=== PATIENT | female | born 1950 | race Caucasian/White ===

== ENCOUNTER 2020-03-28 04:55 | Inpatient (IN) | payer OTHER ==
--- OUTSIDE RECORDS SUMMARY | 2020-03-28 04:57 | XMS REPORT | Continuity of Care Document ---
:1950 Author Organization [facility] t Address [address] [place] [address] Care Team Providers Name Role Phone Trip Perez MD Attending Clinician Doctor Unassigned, Name Attending Clinician Unavailable Austin Mares MD Attending Clinician Problems This patient has no known problems. Allergies, Adverse Reactions, Alerts This patient has no known allergies or adverse reactions. Medications This patient has no known medications. Procedures This patient has no known procedures. Encounters Start End Encounter Admission Attending Care Care Encounter Source Date/Time Date/Time Type Type Clinicians Facility Department ID 2020-02-12 2020-02-12 Telephone PATRICIA Perez [id number] 00:00:00 00:00:00 Trip Whitten [id number] Piotr Culver [id number] [place] [phone] [address] 2020-02-09 2020-02-09 Orders Doctor DALE [id number] 00:00:00 00:00:00 Only Unassigned, ERAN [id number] [facility] [phone] [id number] 2019-12-30 2019-12-30 [facility] [id number] 00:00:00 00:00:00 [facility] [id number] [place] [id number] Professio [phone] [place] [address] Office [facility] 2019-12-08 2019-12-08 [facility] [id number] 00:00:00 00:00:00 Trip Whitten [id number] [place] [id number] Professio [phone] [address] 2019-12-08 2019-12-08 Orders Doctor SUYAPA [id number] 00:00:00 00:00:00 Only Unassigned, ERAN [id number] [facility] [phone] [id number] 2019-11-18 2019-11-18 Orders Doctor SUYAPA [id number] 00:00:00 00:00:00 Only Unassigned, ERAN [id number] [facility] [id number] [id number] 2019-11-13 2019-11-13 [facility] [id number] 00:00:00 00:00:00 Trip Whitten [id number] [place] [id number] Professio [phone] [address] 2019-11-05 2019-11-05 [facility] [id number] 00:00:00 00:00:00 [facility] [id number] [place] [id number] Professio [phone] [address] 2019-11-04 2019-11-04 Orders Doctor SUYAPA 1.2.840.114 [id number] 00:00:00 00:00:00 Only Unassigned, ERAN [id number] [facility] [phone] [id number] 2019-11-03 2019-11-03 Telephone [facility] [id number] 00:00:00 00:00:00 [facility] [id number] Piotr Whitten [id number] Professio [phone] [address] 2019-10-30 2019-10-30 [facility]phone [facility] [id number] 00:00:00 00:00:00 Suyapa Maria Dolores [id number] [place] [id number] Professio [phone] [address] 2019-10-29 2019-10-29 Telephone Vishnu [facility] [id number] 00:00:00 00:00:00 Suyapa Maria Dolores [id number] Austin [place] [id number] Professio [phone] [address] 2019-10-27 2019-10-27 Orders Doctor DALE [id number] 00:00:00 00:00:00 Only Unassigned, ERAN [id number] [facility] [id number] [id number] 2019-10-22 2019-10-22 Orders Doctor DALE [id number] 00:00:00 00:00:00 Only Unassigned, ERAN [id number] [facility] [id number] [id number] 2019-10-12 2019-10-12 Orders Doctor SUYAPA [id number] 00:00:00 00:00:00 Only Unassigned, ERAN [id number] [facility] [phone] [id number] Results This patient has no known results.
--- OUTSIDE RECORDS SUMMARY | 2020-03-28 04:58 | XMS REPORT | Summary of Care ---
:1950 Author Organization [facility] - Health Address [address] [place] [address] Care Team Providers Name Role Phone Piotr Perez MD Primary Care Provider Encounter Details Date Type Department Care Team Description 02/09/2020 Orders Only [facility] Doctor Unassigned, No [address] [facility] [place] [address] [address] [place] [address] Allergies Active Allergy Reactions Severity Noted Date Comments Penicillin Unknown - See comments 05/23/2015 Sulfa (Sulfonamide Antibiotics) Unknown - See comments 05/23/2015 documented as of this encounter (statuses as of 03/07/2020) Medications Medication Sig Dispensed Refills Start Date End Date Status metoprolol tartrate Take 1 tablet by 60 tablet 0 10/01/2019 Active 100 mg mouth every 12 tabletIndications: (twelve) hours. Mucocele of appendix, Chronic atrial fibrillation atorvastatin 40 mg Take 1 tablet by 30 tablet 0 10/01/2019 Active tabletIndications: mouth at bedtime. Mucocele of appendix, Chronic atrial fibrillation Polyethylene Glycol Take 1 Packet by 30 Packet 0 10/01/2019 Active 3350 17 gram mouth daily. powderIndications: Mucocele of appendix, Chronic atrial fibrillation sennosides 8.6 mg Take 1 tablet by 30 tablet 0 10/01/2019 Active tabletIndications: mouth daily. Mucocele of appendix, Chronic atrial fibrillation thiamine 100 mg Take 1 tablet by 30 tablet 0 10/02/2019 Active tabletIndications: mouth daily. Mucocele of appendix, Chronic atrial fibrillation apixaban 5 mg Take 1 tablet by 60 tablet 0 10/01/2019 Active tabletIndications: mouth 2 (two) atrial fibrillation times daily. Indications: atrial fibrillation HYDROcodone-acetaminop Take 1 tablet by 20 tablet 0 10/08/2019 Active hen 5-325 mg mouth every 6 tabletIndications: (six) hours as Acute on chronic needed for Pain diastolic congestive (scale 4-6) or heart failure, Pain (scale 7-10). Mucocele of appendix PARoxetine 30 mg 0 09/20/2019 Ac tive tablet proMETHazine 25 mg 0 09/21/2019 Active tablet ELIQUIS 2.5 mg tablet 0 09/18/2019 Active furosemide 20 mg 0 09/18/2019 Ac tive tablet hydrOXYzine 10 mg 0 09/20/2019 A ctive tablet divalproex ER 250 mg 0 09/20/2019 Active 24 hr tablet HYDROcodone-acetaminop Take 1 tablet by 20 tablet 0 10/19/2019 Active hen (NORCO) 5-325 mg mouth every 6 tabletIndications: (six) hours as Mucocele of appendix needed for Pain (scale 4-6) for up to 20 doses. cyclobenzaprine 5 mg Take 1 tablet by 30 tablet 0 10/24/2019 Active tabletIndications: mouth 3 (three) Bilateral leg edema, times daily as Urinary tract needed for Muscle infection with Spasms for up to hematuria, site 30 doses. 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 Weakness 07/15/2019 Chronic atrial fibrillation 07/14/2019 Acute on chronic diastolic congestive heart failure Intractable pain 07/06/2019 Paroxysmal atrial fibrillation with RVR 07/06/2019 History of arterial ischemic stroke 07/06/2019 Vertigo 06/15/2017 Essential hypertension 11/02/2015 Psoriasis 11/02/2015 Morbid obesity 11/02/2015 Anxiety 11/02/2015 documented as of this encounter (statuses as of 03/07/2020) Immunizations Name Administration Dates Next Due Influenza High Dose 06/16/2017 Pneumococcal Polysaccharide, PPSV23 (PNEUMOVAX) 06/16/2017 documented as of this encounter Social History Tobacco Use Types Packs/Day Years Used Date Never Smoker Smokeless Tobacco: Never Used Alcohol Use Drinks/Week oz/Week Comments No Sex Assigned at Date Recorded Not on file Job Start Date Occupation Industry Not on file Not on file Not on file Travel History Travel Start Travel End No recent travel history available. documented as of this encounter Last Filed Vital Signs Not on filedocumented in this encounter Plan of Treatment Health Maintenance Due Date Last Done Comments HEPATITIS C (HCV) SCREEN 1950 DTaP,Tdap,and Td Vaccines (1 - Tdap) 10/13/1962 Breast Cancer Screening (MAMMOGRAM) 1991 COLONOSCOPY 10/13/2001 Zoster Recombinant Vaccine (SHINGRIX) (1 10/13/2001 of 2) Medicare Wellness Visit 10/13/2016 Osteoporosis Screening 10/13/2016 PNEUMOCOCCAL VACCINES 65+ (2 of 2 - PCV13) 06/16/201806/16 INFLUENZA VACCINE (#1) 2020 07/02/2019, 06/16/2017 Depression Screening 07/05/2020 07/05/2019 documented as of this encounter Implants Implanted Type Area Ring Spinner Device Identifier Shelf Exp iration Model / Serial Date / Lot Knee KNEE documented as of this encounter Procedures Procedure Name Priority Date/Time Associated Diagnosis Comme nts INSURANCE CORRESPONDENCE Routine 02/09/2020 12:01 AM CDT documented in this encounter Results Not on filedocumented in this encounter Insurance Payer Benefit Plan / Subscriber ID Effective Dates Phone Addre ss Type Group [employer] [id number] 2019-Prese Medicare Adv PLUS PLUS nt HMO CLASSIC/VALUE documented as of this encounter
[2020-03-28] MEDS ORDERED: dilTIAZem HCL 25 MG/5 ML VIAL IV ONE ×2 (05:18→05:31)
[2020-03-28 05:25] LABS: Absolute Lymphocytes (CBC) 1.6 K/uL (0.7-4.9); Basophils % 0.2 % (0-1.3); Hematocrit 31.8 % (36.0-45.0); Lymphocytes % 19.8 % (15.3-44.8); MPV 8.3 fL (7.6-11.3); RBC Red Blood Cell Count 3.48 M/uL (3.86-4.86)
[2020-03-28 05:28] LABS: Protime INR 2.47
[2020-03-28] MEDS ORDERED: NA CHLORIDE 0.9% 100 ML IV ONE (05:29)
[2020-03-28 05:58] LABS: ALT/SGPT 70 U/L (12-78); Albumin 1.5 g/dL (3.4-5.0); Alkaline Phosphatase 64 U/L (45-117); BUN Blood Urea Nitrogen 60 mg/dL (7-18); Bicarbonate 22 mmol/L (21-32); Bilirubin Total 1.3 mg/dL (0.2-1.0); CKMB Creatine Kinase MB < 1.0 ng/mL (0.3-3.6); Creatine Phosphokinase 416 U/L (26-192); Glucose Level 85 mg/dL (74-106); Lipase 37 U/L (73-393); Magnesium 1.5 mg/dL (1.8-2.4); Potassium 3.5 mmol/L (3.5-5.1); Protein, Total 6.3 g/dL (6.4-8.2); Sodium Level 151 mmol/L (136-145); Troponin (Emerg Dept Use Only) 0.55 ng/mL (0.0-0.045)
[2020-03-28 05:59] LABS: AST/SGOT 367 U/L (15-37)
[2020-03-28] MEDS ORDERED: FENTANYL CITR 100 MCG/2 ML ONE (05:59)
--- NOTE | 2020-03-28 05:59 | EDPHYS ---
Physician Documentation [facility] Name: Jasmin Hadley Age: 69 yrs Sex: Female : 1950 Arrival Date: 03/28/2020 Time: 04:56 Bed 6 Private MD: ED Physician Michael Real HPI: 03/28 05:24 This 69 yrs old Female presents to ER via Unassigned with complaints of Covid tw4 +. 05:24 The patient has shortness of breath at rest. Onset: The symptoms/episode began/occurred tw4 today. Duration: The symptoms are continuous, and are steadily getting worse. The patient's shortness of breath has no apparent modifying factors. Associated signs and symptoms: Pertinent positives: altered mental status. Unable to obtain HPI due to baseline dementia, obtunded state. EMS states that pt has Covid positive results one week ago. . Historical: - Allergies: 05:42 PENICILLINS; lp1 05:42 Sulfa (Sulfonamide Antibiotics); lp1 - Home Meds: 06:47 acetaminophen 650 mg Rectal supp 1 suppository every 4 hours for Fever, Pain [Active]; lp1 acetaminophen 325 mg Oral tab 2 tabs every 6 hours for Pain [Active]; ascorbic acid (vitamin C) 500 mg tab twice a day [Active]; atorvastatin 40 mg oral tab nightly [Active]; Cymbalta 60 mg oral cpDR 1 cap twice a day [Active]; Eliquis 5 mg oral tab 1 tab 2 times per day [Active]; melatonin 3 mg Oral tab nightly [Active]; metoprolol tartrate 100 mg Oral tab 1 tab 2 times per day [Active]; acetaminophen-codeine 300-30 mg Oral tab 1 tab Q8h [Active]; zinc sulfate 220 mg Oral tab daily [Active]; - PMHx: 05:42 CHF; Anxiety; Hypertension; insomnia; Hyperlipidemia; CVA; lp1 - PSHx: 05:42 Unable to obtain; lp1 - Immunization history:: Adult Immunizations unknown. - Social history:: Smoking status: unknown. ROS: 05:24 Constitutional: Negative for fever, chills, and weight loss, Eyes: Negative for injury, tw4 pain, redness, and discharge, Cardiovascular: Negative for chest pain, palpitations, and edema, Abdomen/GI: Negative for abdominal pain, nausea, vomiting, diarrhea, and constipation, Back: Negative for injury and pain, MS/Extremity: Negative for injury and deformity, Skin: Negative for injury, rash, and discoloration, Neuro: Negative for headache, weakness, numbness, tingling, and seizure. 05:24 Respiratory: Positive for shortness of breath, Negative for cough. Exam: 05:24 Constitutional: This is a well developed, well nourished patient who is awake, alert, tw4 and in no acute distress. Head/Face: Normocephalic, atraumatic. Chest/axilla: Normal chest wall appearance and motion. Nontender with no deformity. No lesions are appreciated. Cardiovascular: Regular rate and rhythm with a normal S1 and S2. No gallops, murmurs, or rubs. Normal PMI, no JVD. No pulse deficits. Respiratory: Lungs have equal breath sounds bilaterally, clear to auscultation and percussion. No rales, rhonchi or wheezes noted. No increased work of breathing, no retractions or nasal flaring. Abdomen/GI: Soft, non-tender, with normal bowel sounds. No distension or tympany. No guarding or rebound. No evidence of tenderness throughout. Back: No spinal tenderness. No costovertebral tenderness. Full range of motion. MS/ Extremity: Pulses equal, no cyanosis. Neurovascular intact. Full, normal range of motion. Neuro: Awake and alert, GCS 15, oriented to person, place, time, and situation. Cranial nerves II-XII grossly intact. Motor strength 5/5 in all extremities. Sensory grossly intact. Cerebellar exam normal. Normal gait. Vital Signs: 04:50 BP 121 / 101; Pulse 150; Resp 30; Pulse Ox 94% on 2 lpm NC; Weight 113.4 kg; lp1 05:00 BP 84 / 43; Pulse 168; Resp 32; Temp 101.7(R); Pulse Ox 94% on 2 lpm NC; lp1 05:10 BP 128 / 59; Pulse 187; Resp 38; Pulse Ox 94% on 2 lpm NC; lp1 05:15 BP 119 / 89; Pulse 152; Resp 38; Pulse Ox 93% on 2 lpm NC; lp1 05:30 BP 134 / 88; Pulse 152; Resp 29; Pulse Ox 98% on 2 lpm NC; lp1 06:00 BP 112 / 89; Pulse 93; Resp 28; Pulse Ox 100% ; vc 06:30 BP 122 / 96; Pulse 65; Resp 33; Temp 103(C); Pulse Ox 100% ; vc 06:45 BP 111 / 83; Pulse 138; Resp 31; Temp 103.2(C); Pulse Ox 100% on 3 lpm NC; jb4 07:00 BP 111 / 83; Pulse 136; Resp 30; Temp 103.0(C); Pulse Ox 100% on 3 lpm NC; jb4 07:40 BP 89 / 71; Pulse 137; Resp 29; Temp 101.8(C); Pulse Ox 100% on 3 lpm NC; sv 08:00 BP 99 / 54; Pulse 132; Resp 28; Temp 101.5(C); Pulse Ox 100% on 3 lpm NC; sv Procedures: 06:54 Cardioversion: (synchronized) using pacer pads, for treatment of A fib, with Post tw4 procedure rhythm is unchanged, the patient tolerated the procedure well. MDM: 05:01 Patient medically screened. tw4 05:24 Differential diagnosis: Anemia reactive airway disease, Unstable Angina. Antibiotic tw4 administration: Not indicated. Data reviewed: vital signs, nurses notes. Data interpreted: library monitor:. Counseling: I had a detailed discussion with the patient and/or guardian regarding: the historical points, exam findings, and any diagnostic results supporting the discharge/admit diagnosis. 06:54 Physician consultation: Dg Brush DO regarding admission, to the ICU, patient's tw4 condition, need to come to ED to see patient, and will see patient in ED. 06:55 ED course: Pt found to be in atrial fibrillation with rapid ventricular response. Pt tw4 currently obtunded and has elevated temperature despite receiving Tylenol suppository. pt initially received boluses of Cardizem and Cardizem drip with no decrease in rate. Attempted to cardiovert pt but was unsuccessful. Pt received additional; bolus of Lopressor 2.5 mg. D/W Dr Cardozo from Cardiology will add digoxin 0.5 mg. Will start Vanco and Levaquin fro presumed sepsis. D/ W Trudi who agrees with treatment plan and admission . 03/28 05:00 Order name: CPK; Complete Time: 06:02 tw4 03/28 06:53 Interpretation: Abnormal: CPK 416. 03/28 05:00 Order name: Magnesium; Complete Time: 06:02 03/28 06:53 Interpretation: Abnormal: MG 1.5. 03/28 05:00 Order name: Ckmb; Complete Time: 06:02 03/28 05:00 Order name: Hepatic Function; Complete Time: 06:02 [facility] 03/28 06:53 Interpretation: Abnormal: AST 367; BILIT 1.3; BILID 1.0; TP 6.3; ALB 1.5; GLOB 4.8. 03/28 05:00 Order name: Lipase; Complete Time: 06:02 [facility] 03/28 06:53 Interpretation: Abnormal: LIP 37. 03/28 05:00 Order name: Troponin (emerg Dept Use Only); Complete Time: 06:02 [facility] 03/28 06:54 Interpretation: Abnormal: TROPED 0.55. 03/28 05:00 Order name: Basic Metabolic Panel; Complete Time: 06:02 [facility] 03/28 06:54 Interpretation: Abnormal: NA 151; CL 118; BUN 60; CRE 3.30; GFR 14. 03/28 05:00 Order name: CBC with Diff 03/28 05:00 Order name: Protime (+inr); Complete Time: 06:02 03/28 05:00 Order name: Ptt, Activated; Complete Time: 06:02 03/28 05:27 Order name: Manual Differential EDMS 03/28 06:03 Order name: Lactate; Complete Time: 06:53 03/28 06:53 Interpretation: Abnormal: LAC 3.5. 03/28 06:03 Order name: Blood Culture Adult (2) 03/28 06:03 Order name: Lactate 03/28 05:00 Order name: CT Stroke Brain w/o Contrast 03/28 05:00 Order name: Stroke CXR 1 View 03/28 06:03 Order name: Blood Culture Adult (2) 03/28 06:18 Order name: Procalcitonin lp1 03/28 06:18 Order name: CRP [facility] 03/28 06:24 Order name: Urine Culture 2 03/28 06:24 Order name: Urine Microscopic Only 03/28 06:27 Order name: Urine Dipstick--Ancillary (enter results) 2 03/28 06:27 Order name: Urine Dipstick-Ancillary; Complete Time: 06:53 EDMS 03/28 06:53 Interpretation: Normal except: USPGR >1.030; UKET 1+; UBLD TRACE; UPROT 1+. tw4 03/28 06:44 Order name: Glucose, Ancillary Testing; Complete Time: 06:53 EDMS 03/28 08:29 Order name: Blood Culture EDOR 03/28 10:03 Order name: Lactate Sepsis 2 HR Follow-up EDOR 03/28 10:24 Order name: ABG Arterial Blood Gas EDOR 03/28 05:00 Order name: EKG; Complete Time: 05:01 tw4 03/28 05:00 Order name: Accucheck; Complete Time: 06:01 tw4 03/28 05:00 Order name: Cardiac monitoring; Complete Time: 05:35 tw4 03/28 05:00 Order name: EKG - Nurse/Tech; Complete Time: 05:35 tw4 03/28 05:00 Order name: IV Saline Lock; Complete Time: 05:35 tw4 03/28 05:00 Order name: Labs collected and sent; Complete Time: 05:35 tw4 03/28 05:00 Order name: NPO; Complete Time: 05:03 tw4 03/28 05:00 Order name: O2 Per Protocol; Complete Time: 05:35 tw4 03/28 05:00 Order name: O2 Sat Monitoring; Complete Time: 05:35 tw4 03/28 05:00 Order name: Stroke Swallow Screen; Complete Time: 08:49 tw4 EC:37 Rhythm is irregularly irregular. QRS [place] is Normal. MI interval is normal. QT interval tw4 is normal. No Q waves. T waves are Inverted in leads V4, V5, V6. No ST changes noted. Clinical impression: Atrial Fibrillation. Interpreted by me. Reviewed by me. Administered Medications: 05:15 Drug: Cardizem 20 mg {Note: By Bisi Mosquera RN; 10 mg at 0509; 10mg at 0515; Dr. Addie [email or web address] at bedside.} Route: IVP; Site: right antecubital; 05:30 Follow up: Response: No adverse reaction; No change in condition 4 05:30 Drug: Cardizem 5 mg/hr {Note: By Bisi Mosquera RN.} Route: IV; Rate: calculated rate; lp1 Site: right antecubital; 05:35 Follow up: Rate change 7.5 mg/hr lp1 07:40 Follow up: Response: No adverse reaction; Rate change 10 calculated rate sv 08:58 Follow up: Response: No adverse reaction; IV Status: Infusion continued upon admission sv 05:50 Drug: fentaNYL (PF) 12.5 mcg Route: IVP; Site: right antecubital; lp1 06:10 Follow up: Response: No adverse reaction jb4 05:57 Drug: NS 0.9% 500 ml Route: IV; Rate: bolus; Site: right antecubital; lp1 06:15 Follow up: Response: No adverse reaction; IV Status: Completed infusion; IV Intake: jb4 500ml 05:58 Drug: Lopressor 2.5 mg Route: IVP; Site: right antecubital; lp1 06:15 Follow up: Response: No adverse reaction; Cardiac rhythm is unchanged; Cardiac rhythm jb4 is unchanged, heart rate decreased. 06:07 Drug: Lopressor 2.5 mg Route: IVP; Site: left antecubital; jb4 06:30 Follow up: Response: No adverse reaction; Cardiac rhythm is unchanged; Cardiac rhythm jb4 is unchanged, heart rate decreased. 06:16 CANCELLED (not available ): Esmolol 50 mcg/kg/min IV at calculated rate once lp1 06:20 Drug: Digoxin 0.5 mg Route: IVP; Site: right antecubital; lp1 06:40 Follow up: Response: No adverse reaction jb4 06:41 Drug: NS 0.9% (30 ml/kg) 30 ml/kg Route: IV; Rate: bolus; Site: left antecubital; jb4 08:58 Follow up: Response: No adverse reaction; IV Status: Completed infusion; IV Intake: sv 3400ml 06:57 Drug: TORadol - Ketorolac 15 mg Route: IVP; Site: left antecubital; 07:40 Follow up: Response: No adverse reaction; Temperature is decreased jb4 07:00 Drug: LevaQUIN 500 mg Volume: 100 ml; Route: IVPB; Infused Over: 60 mins; Site: left wh antecubital; 07:55 Follow up: Response: No adverse reaction; IV Status: Completed infusion; IV Intake: sv 100ml 07:40 Drug: vancoMYCIN 1 grams Route: IVPB; Infused Over: 2 hrs; Site: right antecubital; sv 08:59 Follow up: Response: No adverse reaction; IV Status: Infusion continued upon admission sv 07:40 Drug: SOLU-Medrol 125 mg Route: IVP; Site: left antecubital; sv 08:48 Follow up: Response: No adverse reaction sv Disposition: 06:54 Critical Care:. tw4 Disposition: 03/28/20 05:58 Hospitalization ordered by Dg Brush for Inpatient Admission. Preliminary diagnosis are Persistent atrial fibrillation, Altered mental status, unspecified, Sepsis, unspecified organism. - Bed requested for Intensive Care Unit. - Status is Inpatient Admission. iw - Condition is Stable. - Problem is an ongoing problem. - Symptoms are unchanged. Critical care time excluding procedures: 06:54 Critical care time: Bedside Care: 35 minutes, Consultation: 10 minutes. Total time: 45 tw4 minutes Signatures: Dispatcher [employer] Fiordaliza Lopez RN Celsa Solano RN RN Stephaine Esquivel, RN Gina Prater, RN DEX iw Marisol Carson, RN RN lpTrip Suarez, RN RN Leah [place] mt, Winsy wh Wadley, Terrence, MD MD tw4 Corrections: (The following items were deleted from the chart) 06:11 05:58 Hospitalization Ordered by Dg Brush DO for Inpatient Admission. Preliminary diagnosis is Persistent atrial fibrillation; Altered mental status, unspecified. Bed requested for Telemetry/MedSurg (Inpatient). Status is Inpatient Admission. Condition is Stable. Problem is an ongoing problem. Symptoms are unchanged. tw4 06:16 06:05 Esmolol 50 mcg/kg/min IV at calculated rate once ordered. tw4 lp1 06:45 06:11 03/28/2020 05:58 Hospitalization Ordered by Dg Brush DO for Inpatient tw4 Admission. Preliminary diagnosis is Persistent atrial fibrillation; Altered mental status, unspecified. Bed requested for Telemetry/MedSurg (Inpatient). Status is Inpatient Admission. Condition is Stable. Problem is an ongoing problem. Symptoms are unchanged. 07:33 06:45 03/28/2020 05:58 Hospitalization Ordered by Dg Brush DO for Inpatient dw Admission. Preliminary diagnosis is Persistent atrial fibrillation; Altered mental status, unspecified; Sepsis, unspecified organism. Bed requested for Telemetry/MedSurg (Inpatient). Status is Inpatient Admission. Condition is Stable. Problem is an ongoing problem. Symptoms are unchanged. tw4 07:33 07:33 03/28/2020 05:58 Hospitalization Ordered by Dg Brush DO for Inpatient dw Admission. Preliminary diagnosis is Persistent atrial fibrillation; Altered mental status, unspecified; Sepsis, unspecified organism. Bed requested for [facility] ER HOLD. Status is Inpatient Admission. Condition is Stable. Problem is an ongoing problem. Symptoms are unchanged. dw 10:31 07:33 03/28/2020 05:58 Hospitalization Ordered by Dg Brush DO for Inpatient mt Admission. Preliminary diagnosis is Persistent atrial fibrillation; Altered mental status, unspecified; Sepsis, unspecified organism. Bed requested for [facility] ER HOLD. Status is Inpatient Admission. Condition is Stable. Problem is an ongoing problem. Symptoms are unchanged. dw 11:59 10:31 03/28/2020 05:58 Hospitalization Ordered by Dg Brush DO for Inpatient iw Admission. Preliminary diagnosis is Persistent atrial fibrillation; Altered mental status, unspecified; Sepsis, unspecified organism. Bed requested for Intensive Care Unit. Status is Inpatient Admission. Condition is Stable. Problem is an ongoing problem. Symptoms are unchanged. mt
--- NOTE | 2020-03-28 05:59 | ER ---
Nurse's Notes [facility] Name: Jasmin Hadley Age: 69 yrs Sex: Female : 1950 Arrival Date: 03/28/2020 Time: 04:56 Bed 6 Private MD: Diagnosis: Persistent atrial fibrillation;Altered mental status, unspecified;Sepsis, unspecified organism Presentation: 03/28 04:50 Chief complaint: EMS states: Patient was COVID POSITIVE when tested on 03/20/20; Per [place] lp1 staff, patient altered since yesterday, staff states noticing patient was not speaking tonight; On arrival of EMS, patient with HR in 200's, Afib RVR; Administered Adenosine 12mg IV, with HR to 109, returning to 180's on arrival to ED; Per [place] staff, patient had temp of 102.7, 88% O2 on RA; chest XR tonight resulted as clear. 04:50 Coronavirus screen: Client reports previous positive COVID test result. Date of lp1 collection: March 20, 2020. Ebola Screen: No symptoms or risks identified at this time. Risk Assessment: Do you want to hurt yourself or someone else? Unable to obtain. Onset of symptoms was March 28, 2020. 04:50 Method Of Arrival: EMS: [facility] lp1 04:50 Acuity: VIKY 1 lp1 04:50 Initial Sepsis Screen: Does the patient meet any 2 criteria? RR > 20 per min. Altered lp1 Mental Status. HR > 90 bpm. Yes Does the patient have a suspected source of infection? Yes: Other: known COVID POSITIVE. 05:00 Note Per Bertrand nurseBelkis, patient given Tylenol 650mg x2 suppository at 0115. lp1 05:00 Care prior to arrival: Medication(s) given: Adenosine 12mg IV; NS 500 ml IV. lp1 Historical: - Allergies: 05:42 PENICILLINS; lp1 05:42 Sulfa (Sulfonamide Antibiotics); lp1 - Home Meds: 06:47 acetaminophen 650 mg Rectal supp 1 suppository every 4 hours for Fever, Pain [Active]; lp1 acetaminophen 325 mg Oral tab 2 tabs every 6 hours for Pain [Active]; ascorbic acid (vitamin C) 500 mg tab twice a day [Active]; atorvastatin 40 mg oral tab nightly [Active]; Cymbalta 60 mg oral cpDR 1 cap twice a day [Active]; Eliquis 5 mg oral tab 1 tab 2 times per day [Active]; melatonin 3 mg Oral tab nightly [Active]; metoprolol tartrate 100 mg Oral tab 1 tab 2 times per day [Active]; acetaminophen-codeine 300-30 mg Oral tab 1 tab Q8h [Active]; zinc sulfate 220 mg Oral tab daily [Active]; - PMHx: 05:42 CHF; Anxiety; Hypertension; insomnia; Hyperlipidemia; CVA; lp1 - PSHx: 05:42 Unable to obtain; lp1 - Immunization history:: Adult Immunizations unknown. - Social history:: Smoking status: unknown. Screenin:21 Abuse screen: Denies threats or abuse. Denies injuries from another. Nutritional lp1 screening: No deficits noted. Tuberculosis screening: No symptoms or risk factors identified. Fall Risk Total M[place]uia Fall Scale indicates High Risk Score (45 or more points). Fall prevention measures have been instituted. Side Rails Up X 2 Placed Close to Nursing Station 1:1 Attendant Assigned Frequent Obs/Assessments Occuring. 07:40 Patient has been NPO before screening. The patient is not alert, or is unable to follow sv commands. Bedside swallow screening discontinued. Patient kept NPO until cleared by Speech Therapy or Physician. The patient failed the bedside swallow screening. The patient will be kept NPO until cleared by Speech Therapy or Physician. Provider notified of bedside swallow screening results: Dg Brush DO. Assessment: 05:00 General: PT appears ill, is responsive only to painful stimuli.. Pain: Unable to use jb4 pain scale. Patient is unresponsive. Neuro: Level of Consciousness is unresponsive, Pupils are unequal reactive to light, right pupil is dilated at 8 mm, left pupil is dilated at 6 mm.. Cardiovascular: Patient's skin is warm and dry. Rhythm is atrial fibrillation with rapid ventricular response. Respiratory: Airway is patent Respiratory effort is labored, shallow, weak, Respiratory pattern is symmetrical, tachypnea Breath sounds are clear bilaterally. GI: Abdomen is non-distended, obese, Abd is soft X 4 quads. : white, Genitalia appear normal. EENT: No deficits noted. No signs and/or symptoms were reported regarding the EENT system. Derm: Skin is intact, Skin is pink, warm \T\ dry. Musculoskeletal: Circulation, motion, and sensation intact. Range of motion: intact in all extremities. 06:00 Reassessment: No changes from previously documented assessment. Patient and/or family jb4 updated on plan of care and expected duration. Pain level reassessed. Pt shows no improvement after synchronized cardioversion. 07:00 Reassessment: Pt remains unresponsive to stimuli other than pain. Pt respirations jb4 remain, tachypneic, shallow, weak, labored, and symmetrical. IV's remain intact and infusing with ease. Heart rate remains elevated at 136 Bpm. No other change from initial assessment. 07:40 General: Appears in no apparent distress. well developed, Behavior is unresponsive. pt sv unable to follow commands. Pain: Unable to use pain scale. Patient is disoriented. Does not appear to understand pain scale. FLACC scale score is 0 out of 10. Neuro: Level of Consciousness is unresponsive, pt stares but does not respond. Oriented to none. Cardiovascular: Rhythm is atrial fibrillation with rapid ventricular response. Respiratory: Airway is patent Respiratory effort is shallow, weak, Respiratory pattern is symmetrical, tachypnea. GI: Abdomen is obese, Abd is soft and non tender X 4 quads. Derm: Skin is normal, Skin temperature is hot. Vital Signs: 04:50 BP 121 / 101; Pulse 150; Resp 30; Pulse Ox 94% on 2 lpm NC; Weight 113.4 kg; lp1 05:00 BP 84 / 43; Pulse 168; Resp 32; Temp 101.7(R); Pulse Ox 94% on 2 lpm NC; lp1 05:10 BP 128 / 59; Pulse 187; Resp 38; Pulse Ox 94% on 2 lpm NC; lp1 05:15 BP 119 / 89; Pulse 152; Resp 38; Pulse Ox 93% on 2 lpm NC; lp1 05:30 BP 134 / 88; Pulse 152; Resp 29; Pulse Ox 98% on 2 lpm NC; lp1 06:00 BP 112 / 89; Pulse 93; Resp 28; Pulse Ox 100% ; vc 06:30 BP 122 / 96; Pulse 65; Resp 33; Temp 103(C); Pulse Ox 100% ; vc 06:45 BP 111 / 83; Pulse 138; Resp 31; Temp 103.2(C); Pulse Ox 100% on 3 lpm NC; jb4 07:00 BP 111 / 83; Pulse 136; Resp 30; Temp 103.0(C); Pulse Ox 100% on 3 lpm NC; jb4 07:40 BP 89 / 71; Pulse 137; Resp 29; Temp 101.8(C); Pulse Ox 100% on 3 lpm NC; sv 08:00 BP 99 / 54; Pulse 132; Resp 28; Temp 101.5(C); Pulse Ox 100% on 3 lpm NC; sv ED Course: 04:56 Patient arrived in ED. cl3 05:00 Michael Real MD is Attending Physician. tw4 05:10 Radiology exam delayed due to Patient not stable at this time.. kw1 05:32 Triage completed. lp1 05:33 Arm band placed on. lp1 05:36 Stroke CXR 1 View In Process Unspecified. EDMS 05:37 CT Stroke Brain w/o Contrast In Process Unspecified. EDMS 05:45 Inserted saline lock: 18 gauge in left antecubital area, using aseptic technique. lp1 05:50 Assist provider with cardioversion (synchronized) with pads, for treatment of A fib lp1 with 50 joules Set up for procedure. Performed by Michael Real MD Monitored with environmental monitoring technician, pulse ox, Post procedure rhythm is unchanged. 05:52 Assist provider with cardioversion (synchronized) with pads, for treatment of A fib lp1 with 120 joules. Set up for procedure. Performed by Michael Real MD Monitored with environmental monitoring technician, pulse ox, Post procedure rhythm is unchanged. 05:57 Dg Brush DO is Hospitalizing Provider. tw4 06:00 Notified ED physician of a critical lab result(s). AST 364, Trop 0.55. lp1 06:15 Choi cath inserted, using sterile technique, 16 Fr., by ED staff, balloon inflated, to lp1 gravity drainage, urine specimen collected. 06:35 Trip Mosquera, RN is Primary Nurse. jb4 07:13 Primary Nurse role handed off by Trip Mosquera, DEX sv 07:13 Fiordaliza Mendoza, DEX is Primary Nurse. sv 07:22 Urine Dipstick--Ancillary (enter results) Sent. sv 07:22 Lactate Sent. sv 07:40 Patient has correct armband on for positive identification. Placed in gown. Bed in low sv position. Call light in reach. Side rails up X2. panel monitor on. Pulse ox on. NIBP on. 08:48 Blood Culture Sent. sv 08:51 Patient admitted, IV remains in place. intact. sv Administered Medications: 05:15 Drug: Cardizem 20 mg {Note: By Bisi Mosquera RN; 10 mg at 0509; 10mg at 0515; Dr. Real lp1 at bedside.} Route: IVP; Site: right antecubital; 05:30 Follow up: Response: No adverse reaction; No change in condition jb4 05:30 Drug: Cardizem 5 mg/hr {Note: By Bisi Mosquera RN.} Route: IV; Rate: calculated rate; lp1 Site: right antecubital; 05:35 Follow up: Rate change 7.5 mg/hr lp1 07:40 Follow up: Response: No adverse reaction; Rate change 10 calculated rate sv 08:58 Follow up: Response: No adverse reaction; IV Status: Infusion continued upon admission sv 05:50 Drug: fentaNYL (PF) 12.5 mcg Route: IVP; Site: right antecubital; lp1 06:10 Follow up: Response: No adverse reaction jb4 05:57 Drug: NS 0.9% 500 ml Route: IV; Rate: bolus; Site: right antecubital; lp1 06:15 Follow up: Response: No adverse reaction; IV Status: Completed infusion; IV Intake: jb4 500ml 05:58 Drug: Lopressor 2.5 mg Route: IVP; Site: right antecubital; lp1 06:15 Follow up: Response: No adverse reaction; Cardiac rhythm is unchanged; Cardiac rhythm jb4 is unchanged, heart rate decreased. 06:07 Drug: Lopressor 2.5 mg Route: IVP; Site: left antecubital; jb4 06:30 Follow up: Response: No adverse reaction; Cardiac rhythm is unchanged; Cardiac rhythm jb4 is unchanged, heart rate decreased. 06:16 CANCELLED (not available ): Esmolol 50 mcg/kg/min IV at calculated rate once lp1 06:20 Drug: Digoxin 0.5 mg Route: IVP; Site: right antecubital; lp1 06:40 Follow up: Response: No adverse reaction jb4 06:41 Drug: NS 0.9% (30 ml/kg) 30 ml/kg Route: IV; Rate: bolus; Site: left antecubital; jb4 08:58 Follow up: Response: No adverse reaction; IV Status: Completed infusion; IV Intake: sv 3400ml 06:57 Drug: TORadol - Ketorolac 15 mg Route: IVP; Site: left antecubital; 07:40 Follow up: Response: No adverse reaction; Temperature is decreased jb4 07:00 Drug: LevaQUIN 500 mg Volume: 100 ml; Route: IVPB; Infused Over: 60 mins; Site: left wh antecubital; 07:55 Follow up: Response: No adverse reaction; IV Status: Completed infusion; IV Intake: sv 100ml 07:40 Drug: vancoMYCIN 1 grams Route: IVPB; Infused Over: 2 hrs; Site: right antecubital; sv 08:59 Follow up: Response: No adverse reaction; IV Status: Infusion continued upon admission sv 07:40 Drug: SOLU-Medrol 125 mg Route: IVP; Site: left antecubital; sv 08:48 Follow up: Response: No adverse reaction sv Intake: 05:15 IV: 500ml (IV Fluid); Total: 500ml. lp1 06:15 IV: 500ml (IV Fluid); Total: 1000ml. lp1 06:15 IV: 500ml; Total: 1500ml. jb4 07:55 IV: 100ml; Total: 1600ml. sv 08:58 IV: 3400ml; Total: 5000ml. sv Outcome: 05:58 Decision to Hospitalize by Provider. tw4 08:51 Admitted to ER Hold. Please see [facility] for further documentation. sv 08:51 critical 08:51 Instructed on the need for admit. 11:59 Patient left the ED. iw Signatures: Dispatcher [employer] EDMS Fiordaliza Mendoza RN RN sv Williams, Irene, RN RN iw Marisol Carson RN RN lp1 Trip Mosquera RN RN sea4 Jamel De León Meg Truong 1 Michael Real MD MD tw4 Atif Mendoza cl3 Tiffany Kohli RN RN vc Corrections: (The following items were deleted from the chart) 05:37 05:30 BP 134 / 88; Pulse 152bpm; Resp 38bpm; Pulse Ox 98% 2 lpm Nasal Cannula; lp1 lp1 06:05 05:00 BP 84 / 43; Pulse 168bpm; Resp 32bpm; Pulse Ox 94% 2 lpm Nasal Cannula; lp1 lp1 06:09 05:00 Note Per Charan nurseBelkis, patient given Tylenol 650mg x2 suppository lp1 lp1 07:48 06:00 Reassessment: No changes from previously documented assessment. Patient and/or jb4 family updated on plan of care and expected duration. Pain level reassessed. jb4
[2020-03-28] MEDS ORDERED: NA CHLORIDE 0.9% 500 ML ONE (06:05)
[2020-03-28] MEDS ORDERED: METOPROLOL TARTRATE 5 MG/5 ML INJ IV ONE ×2 (06:08→06:18)
[2020-03-28] MEDS ORDERED: DIGOXIN 0.25 MG/ML AMP ONE (06:30)
[2020-03-28 06:32] LABS: Urine Blood TRACE (NEG); Urine Glucose NEGATIVE (NEG); Urine Protein 1+ (NEG); Urine Specific Gravity >1.030 (1.005-1.030)
[2020-03-28] MEDS ORDERED: NA CHLORIDE 0.9% 2,000 ML ONE (06:46)
[2020-03-28] MEDS ORDERED: VANCOMYCIN 1 GM/VIAL ONE (06:59)
[2020-03-28] MEDS ORDERED: Levofloxacin500mg IV 500 MG/100 ML BAG IV ONE (07:00)
[2020-03-28] MEDS ORDERED: NA CHLORIDE 0.9% 250 ML ONE (07:00)
--- NOTE | 2020-03-28 07:01 | P.HP ---
Certification for Inpatient Patient admitted to: Inpatient With expected LOS: >2 Midnights Patient will require the following post-hospital care: Hospice Practitioner: I am a practitioner with admitting privileges, knowledge of patient current condition, hospital course, and medical plan of care. Services: Services provided to patient in accordance with Admission requirements found in Title 42 Section 412.3 of the Code of Federal Regulations Patient History Date of Service: 03/28/20 Primary Care Provider: Dr. 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 Most of the information came from the daughter and nursing staff. The daughter reports that the patient had been hospitalized at [facility] 2020 for abdominal pain. She had a ruptured appendix at that time. Appendectomy was done. There was some question of cancer after procedure. They when to remove portion of the left over procedure as it was cancerous. Upon going into suspect omental thickening-carcinomatosis was noted as per daughter. The daughter reports that they had to closer at that time. The patient then went to rehab at the intermediate. Since being at the intermediate. She was tested positive for COVID about a week ago. Nurses report from the intermediate that the patient became altered with fever. She is brought in this morning for continued altered mental status and fever. In the ER patient was found to have a temperature of 101. Patient also found to had AFib in the 170s. White count 8.2, hemoglobin 10.4. INR greater than 2. Sodium 151, potassium 3.5. BUN of 60, creatinine 3.3 with a GFR 14. Glucose 85. Lactic acid elevated at 3.5. AST elevated at 367. Total bilirubin elevated at 1.3. Magnesium low at 1.5. Troponin 0.55. Chest x-ray pending. CT scan shows no acute stroke but prior stroke changes noted. In the ER patient was given medication for AFib. Patient was ultimately placed on a diltiazem drip. Patient started on sepsis protocol-IV fluid bolus. Antibiotics to be initiated. I was called to evaluate patient and to admit the patient. When I arrived patient only response to pain. Not able to give history. As mentioned above history came from the ER physician, nurses and daughter. ER physician spoke to Cardiology. Cardiology recommends to give digoxin at this time. Continue diltiazem drip. If blood pressure on stable then the patient will need to have cardioversion. Daughter reports that the patient is do not resuscitate. Home medications list reviewed: Yes - Past Medical/Surgical History Diabetic: No -: Diastolic CHF -: Chronic atrial fibrillation -: Chronic anti coagulation therapy -: Stage IV cancer-appendix -: History of CVA -: Dementia -: Appendix removed September 2019 Psychosocial/ Personal History: Patient currently is at a intermediate - Family History Family History: Reviewed- Non-Contributory - Social History Smoking Status: Unknown if ever smoked Alcohol use: No CD- Drugs: No Caffeine use: No Place of Residence: [place] Review of Systems is unable to be obtained Physical Examination - Physical Exam General: Other (Patient appears confused. Responds only to pain.) HEENT: Atraumatic Neck: Supple Respiratory: Diminished (Bilateral) Cardiovascular: Irregular heart rate/rhythm (AFib rate around 140-150) Gastrointestinal: Normal bowel sounds, No tenderness Musculoskeletal: No tenderness, No warmth Integumentary: No cyanosis Neurological: Other (Patient response to pain. Currently on nasal cannula. Patient does not appear in any respiratory distress.) - Studies Laboratory Data (last 24 hrs) 03/28/20 05:05: PT 28.6 H, INR 2.47, APTT 34.9 03/28/20 05:05: WBC 8.2, Hgb 10.4 L, Hct 31.8 L, Plt Count 295 03/28/20 05:05: Sodium 151 H, Potassium 3.5, BUN 60 H, Creatinine 3.30 H, Glucose 85, Magnesium 1.5 L, Total Bilirubin 1.3 H, AST 367 H*, ALT 70, Alkaline Phosphatase 64, Lipase 37 L Assessment and Plan - Plan Impression: Acute toxic encephalopathy with fever, hypoxia suspect COVID pneumonia with sepsis AFib with RVR on chronic anti coagulation therapy Acute renal failure likely related to above with hypernatremia Elevated liver function likely related to above with possible underlying liver failure Hypomagnesia 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 Patient currently on diltiazem drip for AFib. ER has spoken to sees cardiology. If the patient becomes hypotensive patient may need cardioversion. Will monitor closely. Sepsis protocol to be initiated. Patient to get fluid bolus in the emergency room. Will start D5W thereafter. Case discussed with nephrology as well. Case also discuss with pulmonology to continue critical care. ABG pending. Blood cultures and urine culture to be obtained. Patient will be given Solu-Medrol and to be continued. Will start IV vancomycin and cefepime. Will continue to monitor the patient closely. Will hold on DVT prophylaxis as INR is elevated. Will replace electrolytes. Will monitor patient closely. Case discussed in detail with daughter who has medical power of environmental attorney. Advanced directives and advanced care planning address in detail. Daughter expressed that the patient has been declining in health and with stage IV cancer. Daughter expressed that the patient wanted to be do not resuscitate. Will continue with do not resuscitate at this time. If the patient continues to decline will need to consider hospice. Daughter is in agreement. Will continue monitor closely. AFib with RVR on chronic anti coagulation therapy: Patient on diltiazem drip. Hold anti coagulation therapy. Will discuss with cardiology. Patient may require cardioversion if be comes hypotensive. Acute renal failure likely related to above with hypernatremia: Patient to be given fluid bolus per protocol. Continue IV fluids. Will monitor closely. Elevated liver function likely related to above with possible underlying liver f ailure: Will monitor renal function closely. Likely suspect related to sepsis verses CHF versus stage IV cancer. Will obtain CT scan to further evaluate. Hypomagnesia: Will replace electrolytes. Stage IV cancer likely from appendix: Patient recently diagnose with stage IV cancer. Will continue with above plan of care. Will need to consider hospice if the patient condition be comes worse. Anemia of chronic disease: Will monitor closely. History of CVA: Initial CT scan unremarkable. Will obtain MRI to further evaluate. Discharge Plan: Other (longterm) Plan to discharge in: Greater than 2 days - Advance Directives Does patient have a Living Will: No Does patient have a Durable POA for Healthcare: No - Code Status/Comfort Care Code Status Assessed: Yes (Discuss with medical power of environmental attorney. Patient is do not resuscitate.) Time Spent Managing Pts Care (In Minutes): 65
[2020-03-28] MEDS ORDERED: KETOROLAC 30 MG/ML INJ ONE (07:06)
[2020-03-28 07:07] LABS: Urine Amorphous Sediment 3+ /HPF (NONE SEEN); Urine Bacteria 20-50 /HPF (<20); Urine Culture Reflex Order NOT NEEDED; Urine Mucus MOD /HPF (NONE SEEN)
[2020-03-28 07:08] LABS: Urine Crystals Unidentified MANY (NONE SEEN); Urine Other Components A (NONE SEEN)
[2020-03-28 07:26] LABS: Blood Morphology Comment NOT SEEN (NOT SEEN); Platelet Estimate ADEQ
[2020-03-28] MEDS ORDERED: METHYLPREDNISOLONE 125 MG INJ ONE (07:38)
[2020-03-28] MEDS ORDERED: ACETAMINOPHEN 650MG/RECT SUPP PR ONE (07:38)
[2020-03-28] MEDS: ACETAMINOPHEN 650MG/RECT SUPP PR PRN ×2 (07:40→14:03)
--- NOTE | 2020-03-28 07:45 | RAD REPORT ---
EXAM DESCRIPTION: Matias Single View03/28/2020 5:36 am CLINICAL HISTORY: Cough COMPARISON: none FINDINGS: Artifact overlies the chest Mild bilateral pulmonary opacities suspected The heart is normal size IMPRESSION: Mild bilateral pulmonary opacities may indicate mild pneumonia
[2020-03-28] MEDS: D5W 1,000 ML IV SCH ×3 (08:23→23:45)
[2020-03-28] MEDS ORDERED: METHYLPREDNISOLONE 125 MG INJ IV ONE (08:23)
[2020-03-28] MEDS ORDERED: LORazepam 2 MG/ML VIAL IV PRN (08:23)
[2020-03-28] MEDS ORDERED: DILTIAZEM INJ 125 MG in NA CHLORIDE 0.9% 100 ML IVPB PRN (08:23)
[2020-03-28] MEDS ORDERED: ACETAMINOPHEN 500 MG TAB PO PRN (08:23)
[2020-03-28] MEDS ORDERED: ONDANSETRON 4 MG/2 ML VIAL IV PRN (08:23)
[2020-03-28] MEDS ORDERED: SODIUM CHLORIDE 0.9% 10ML INJ IV PRN (08:23)
[2020-03-28] MEDS ORDERED: CEFEPIME/SWI 1gm 10 ML IV SCH (09:00)
[2020-03-28] MEDS ORDERED: CEFEPIME 1 GM/VIAL IV SCH (09:00)
[2020-03-28] MEDS: PANTOPRAZOLE 40 MG INJ IVP SCH (09:00)
[2020-03-28] MEDS ORDERED: VANCOMYCIN/NS 1 gm 1 GM/250 ML BAG IV ONE (09:30)
[2020-03-28 10:22] LABS: Arterial Blood Carboxyhemoglob 0.5 % (0-1.5); Blood Gas Oxyhemoglobin 96.4 % (94-97); Blood O2 Saturation 98.5 % (92-98.5)
--- NOTE | 2020-03-28 10:44 | P.CNS ---
Date of Consult: 03/28/20 Reason for Consult: JEF Requesting Physician: Dg Brush Primary Care Provider: Dr. 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 Seen and examined in the ER. Limited HPI/ ROS due to AMS. Most of the information came from the daughter and nursing staff. The daughter reports that the patient had been hospitalized at [facility] 2020 for abdominal pain. She had a ruptured appendix at that time. Appendectomy was done. There was some question of cancer after procedure. They when to remove portion of the left over procedure as it was cancerous. Upon going into suspect omental thickening-carcinomatosis was noted as per daughter. The daughter reports that they had to closer at that time. The patient then went to rehab at the detention. Since being at the detention. She was tested positive for COVID about a week ago. Nurses report from the detention that the patient became altered with fever. She is brought in this morning for continued altered mental status and fever. 05:24 This 69 yrs old Female presents to ER via Unassigned with complaints of Covid tw4 +. 05:24 The patient has shortness of breath at rest. Onset: The symptoms/episode began/occurred tw4 today. Duration: The symptoms are continuous, and are steadily getting worse. The patient's shortness of breath has no apparent modifying factors. Associated signs and symptoms: Pertinent positives: altered mental status. Unable to obtain HPI due to baseline dementia, obtunded state. EMS states that pt has Covid positive results one week ago. Allergies Penicillins Allergy (Verified 03/28/20 07:21) Hives Sulfa (Sulfonamide Antibiotics) Adverse Reaction (Verified 03/28/20 07:21) Hives Home medications list reviewed: Yes Home Medications: Acetaminophen [Tylenol*] 650 mg ID Q4HP PRN 03/28/20 Apixaban [Eliquis] 5 mg PO BID 03/28/20 Atorvastatin Calcium [Lipitor] 40 mg PO BEDTIME 03/28/20 Codeine/APAP [Tylenol #3*] 1 tab PO Q8H PRN 03/28/20 Duloxetine HCl [Cymbalta] 60 mg PO BID 03/28/20 Melatonin 3 mg PO BEDTIME 03/28/20 Metoprolol Tartrate 100 mg PO Q12H 03/28/20 Zinc Sulfate [Zinc Sulfate*] 220 mg PO DAILY 03/28/20 - Past Medical/Surgical History Diabetic: No -: Diastolic CHF -: Chronic atrial fibrillation -: Chronic anti coagulation therapy -: Stage IV cancer-appendix -: History of CVA -: Dementia -: Appendix removed September 2019 Psychosocial/ Personal History: Patient currently is at a detention - Social History Alcohol use: No CD- Drugs: No Caffeine use: No Place of Residence: [facility] Review of Systems is unable to be obtained Physical Examination General: Unresponsive HEENT: Atraumatic Neck: Supple Respiratory: Clear to auscultation bilaterally, Diminished Cardiovascular: No edema, Irregular heart rate/rhythm Gastrointestinal: Hypoactive, Non-distended Musculoskeletal: No clubbing, No contractures Integumentary: No rashes, No cyanosis Neurological: Abnormal tone Urinary: Choi catheter Laboratory Data (last 24 hrs) 03/28/20 05:05: PT 28.6 H, INR 2.47, APTT 34.9 03/28/20 05:05: WBC 8.2, Hgb 10.4 L, Hct 31.8 L, Plt Count 295 03/28/20 05:05: Sodium 151 H, Potassium 3.5, BUN 60 H, Creatinine 3.30 H, Glucose 85, Magnesium 1.5 L, Total Bilirubin 1.3 H, AST 367 H*, ALT 70, Alkaline Phosphatase 64, Lipase 37 L Imagings Data: EXAM DESCRIPTION: Matias Single View03/28/2020 5:36 am CLINICAL HISTORY: Cough COMPARISON: none FINDINGS: Artifact overlies the chest Mild bilateral pulmonary opacities suspected The heart is normal size IMPRESSION: Mild bilateral pulmonary opacities may indicate mild pneumonia Conclusions/Impression: A/ JEF in the setting of hypovolemia Proteinuria Hypernatremia/ Dehydration Hypokalemia Acidosis Hypocalcemia Hypomagnesemia Rhabdomyolysis, mild Severe malnutrition. Hypoalbuminemia. Diastolic CHF, chronic Anemia in chronic illness Stage IV cancer of the appendix. Sepsis COVID19 Toxic metabolic encephalopathy P/ Continue current POC and Medications Continue IVF. IVF bolus as needed. Amiodarone gtt for rapid afib. Continue abx. COVID protocol. Oxygen supplementation. No NSAIDs. AM labs. Daily weight. Greater than 30min patient care. Thank you kindly for the consultation. Critical Care: Yes
[2020-03-28] MEDS ORDERED: AMIODARONE HCL 150 MG in D5W 100 ML IV STA (11:55)
[2020-03-28] MEDS ORDERED: METHYLPREDNISOLONE 125 MG INJ IV SCH (12:00)
[2020-03-28 12:07] LABS: CKMB Creatine Kinase MB 2.8 ng/mL (0.3-3.6); Thyroid Stimulating Hormone 0.825 uIU/mL (0.360-3.740); Troponin I 0.49 ng/mL (0.0-0.045)
--- NOTE | 2020-03-28 12:18 | P.CNS ---
Date of Consult: 03/28/20 Primary Care Provider: Dr. Perez Chief Complaint: Altered mental status, fever History of Present Illness: Patient is 69 years of age hospitalist for possible appendicitis currently she has stage IV cancer was recently seen at [facility] as not unresponsive in AFib renal failure currently DNR patient is polk virus positive multiple medical problems AFib chronic anticoagulation with some omental thickening possibly carcinomatosis patient was in half-way the was altered with fever was febrile in the emergency room renal failure Allergies Penicillins Allergy (Verified 03/28/20 07:21) Hives Sulfa (Sulfonamide Antibiotics) Adverse Reaction (Verified 03/28/20 07:21) Hives - Past Medical/Surgical History Diabetic: No -: Diastolic CHF -: Chronic atrial fibrillation -: Chronic anti coagulation therapy -: Stage IV cancer-appendix -: History of CVA -: Dementia -: Appendix removed September 2019 Psychosocial/ Personal History: Patient currently is at a half-way - Social History Smoking Status: Unknown if ever smoked Alcohol use: No CD- Drugs: No Caffeine use: No Place of Residence: [facility] Review of Systems is unable to be obtained Physical Examination Temp Pulse Resp BP Pulse Ox 100.9 F 126 H 29 H 138/64 100 03/28/20 11:00 03/28/20 11:00 03/28/20 11:00 03/28/20 11:00 03/28/20 11:00 General: Unresponsive Respiratory: Clear to auscultation bilaterally Cardiovascular: No edema, Irregular heart rate/rhythm Laboratory Data (last 24 hrs) 03/28/20 05:05: PT 28.6 H, INR 2.47, APTT 34.9 03/28/20 05:05: WBC 8.2, Hgb 10.4 L, Hct 31.8 L, Plt Count 295 03/28/20 05:05: Sodium 151 H, Potassium 3.5, BUN 60 H, Creatinine 3.30 H, Glucose 85, Magnesium 1.5 L, Total Bilirubin 1.3 H, AST 367 H*, ALT 70, Alkaline Phosphatase 64, Lipase 37 L - Problems (1) Sepsis Current Visit: Yes Status: Acute Plan: Patient is 69 years of age possible abdominal cancer he is in acute renal failure with fever oxygenation satisfactory blood pressure is stable on a Cardizem drip cultures are pending chest x-rays clear. Polk virus infection off the lungs CRP and procalcitonin both elevated oxygenation satisfactory she is acidotic from renal failure patient is adequately anti coagulated normal white count agree with broad-spectrum antibiotic patient is also hypernatremic abnormal liver function tests continue with D5 water patient need ultrasound of the kidneys abdominal pelvic CT ordered reduce dose of steroids for now
--- NOTE | 2020-03-28 12:27 | RAD REPORT ---
EXAM DESCRIPTION: CT - Ct Stroke Brain Wo Cont - 03/28/2020 5:56 am CLINICAL HISTORY: HEMIPLEGIA . COVID. COMPARISON: None. TECHNIQUE: Head/brain axial images acquired without contrast. Coronal and sagittal reformats created . Exam performed according to departmental dose-optimization program which includes automated exposur e control, adjustment of mA and/or kV according to patient size, and/or use of iterative reconstructi on technique. FINDINGS: No midline shift, mass effect, intracranial hemorrhage, or hydrocephalus. Moderate-sized hypodense abnormalities at midlevel left frontal and bilateral occipital lobes likely representing old ischemic infarcts. Mild hypodense periventricular cerebral white matter abnormality. CSF spaces appear overall mildly enlarged likely representing age-appropriate cerebral volume loss. Moderate right occipital scalp soft tissue swelling. Marked opacification of left middle ear cavity and mastoid air cells. Paranasal sinuses appear grossly clear. No skull fracture. IMPRESSION: 1. No CT evidence of acute intracranial abnormality. If there remains strong clinical suspicion of acute ischemic infarct, then MR brain/head recommended (if there are no contraindications). 2. Moderate-sized hypodense abnormalities at midlevel left frontal and bilateral occipital lobes like ly representing old ischemic infarcts. 3. Mild cerebral white matter disease most likely represents chronic small vessel ischemia. 4. Moderate right occipital scalp soft tissue swelling. 5. Marked opacification of left middle ear cavity and mastoid air cells. This may represent left otomastoiditis. Clinical correlation recommended. Electronically signed by: Syed Baires MD 03/28/2020 5:47 AM CDT Due to temporary technical issues with the PACS/Fluency reporting system, reports are being signed by the in house radiologist without review as a courtesy to ensure prompt reporting. The interpreting r adiologist is fully responsible for the content of the report.
--- NOTE | 2020-03-28 12:40 | P.INFCA ---
Sepsis Focused Assessment - Focused Assessment Complete? Sepsis Focused Assessment Completed?: Yes - Sepsis Screen Result Severe Sepsis: Positive Septic Shock: Negative - Evaluation Current stage of sepsis: Severe sepsis - Vital Signs Reviewed: Yes Temperature: 100.9 F Heart rate: 126 Blood Pressure: 138/64 Respiratory Rate: 29 O2 Sat by Pulse Oximetry: 100 - Examination Heart: Irregular rhythm (AFib rate around 130) Lungs: Decreased breath sounds Peripheral pulses: 1+ Faint Peripheral pulse location: Pedal Capillary refill: >2 Seconds Skin examination: Normal turgor
[2020-03-28] MEDS: AMIODARONE HCL 900 MG in Dextrose 5%-Water 482 ML IV SCH (12:41)
[2020-03-28] MEDS: DILTIAZEM INJ 125 MG in NA CHLORIDE 0.9% 100 ML IVPB PRN (12:42)
--- NOTE | 2020-03-28 15:12 | ECHO ---
HEIGHT: 5 ft 5 in WEIGHT: 250 lb 0 oz DATE OF STUDY: 03/28/[address]: Dg Brush DO 2-DIMENSIONAL: YES M.MODE: YES DOPPLER: YES COLOR FLOW: YES TDS: NO PORTABLE: YES DEFINITY: NO BUBBLE STUDY: NO DIAGNOSIS: SEPSIS, CONGESTIVE HEART FAILURE CARDIAC HISTORY: CATHERIZATION: SURGERY: PROSTHETIC VALVE: PACEMAKER: MEASUREMENTS (cm) DIASTOLIC (NORMALS) SYSTOLIC (NORMALS) IVSd 1.0 (0.6-1.2) LA Diam 3.5 (1.9-4.0) LVEF 66% LVIDd 4.6 (3.5-5.7) LVIDs 3.0 (2.0-3.5) %FS 36% LVPWd 1.0 (0.6-1.2) Ao Diam 2.7 (2.0-3.7) 2 DIMENSIONAL ASSESSMENT: RIGHT ATRIUM: NORMAL LEFT ATRIUM: ENLARGED RIGHT VENTRICLE: NORMAL LEFT VENTRICLE: NORMAL TRICUSPID VALVE: MITRAL VALVE: PULMONIC VALVE: NORMAL AORTIC VALVE: NORMAL PERICARDIAL EFFUSION: NONE AORTIC ROOT: NORMAL LEFT VENTRICULAR WALL MOTION: NORMAL DOPPLER/COLOR FLOW: NORMAL COMMENTS: NORMAL LEFT VENTRICULAR EJECTION FRACTION WITH NORMAL WALL MOTION. MILD TRICUSPID AND MITRAL REGURGITATION. MILD PULMONARY HYPERTENSION WITH RIGHT VENTRICULAR SYSTOLIC PRESSURE OF 35-40 mmHg. TECHNOLOGIST: Bisi BROWN
[2020-03-28 19:47] LABS: CKMB Creatine Kinase MB 3.7 ng/mL (0.3-3.6); Troponin I 0.37 ng/mL (0.0-0.045)
[2020-03-28] MEDS: METHYLPREDNISOLONE 40 MG INJ IV SCH (20:08)
[2020-03-29] MEDS: DILTIAZEM INJ 125 MG in NA CHLORIDE 0.9% 100 ML IVPB PRN (01:41)
[2020-03-29] MEDS: AMIODARONE HCL 900 MG in Dextrose 5%-Water 482 ML IV SCH ×2 (05:07→21:57)
[2020-03-29 05:31] LABS: Absolute Lymphocytes (CBC) 0.8 K/uL (0.7-4.9); Basophils % 0.2 % (0-1.3); Hematocrit 30.7 % (36.0-45.0); MPV 8.4 fL (7.6-11.3); RBC Red Blood Cell Count 3.33 M/uL (3.86-4.86)
[2020-03-29 05:33] LABS: Protime INR 2.06
[2020-03-29 05:49] LABS: Albumin 1.4 g/dL (3.4-5.0); Bilirubin Total 1.1 mg/dL (0.2-1.0); Phosphorus 3.8 mg/dL (2.5-4.9); Potassium 3.8 mmol/L (3.5-5.1); Protein, Total 5.8 g/dL (6.4-8.2); Uric Acid 9.4 mg/dL (2.6-6.0)
[2020-03-29 05:51] LABS: Magnesium 1.3 mg/dL (1.8-2.4)
[2020-03-29] MEDS ORDERED: Magnesium Sulfate 2gm IVPB 2 G/50 ML BAG IV ONE (06:30)
[2020-03-29 07:28] LABS: White Blood Cell Scan OK
[2020-03-29 07:29] LABS: Platelet Estimate ADEQ; Toxic Granulation PRESENT
[2020-03-29 07:30] LABS: Blood Morphology Comment NOTED (NOT SEEN); Poikilocytosis SLIGHT
[2020-03-29 07:31] LABS: Burr Cells FEW
--- NOTE | 2020-03-29 08:18 | P.PN ---
Subjective Date of Service: 03/29/20 Primary Care Provider: Dr. Perez Chief Complaint: Altered mental status, fever Subjective: Other (Patient slightly more alert and responding to pain. Overall stable.) Physical Examination - Vital Signs Temperature: 100.3 F Blood Pressure: 128/89 Pulse: 103 Respirations: 25 Pulse Ox (%): 100 - Physical Exam General: Other (Still confused but responding to pain) HEENT: Other (pupils unequal) Neck: Supple Respiratory: Other (patient breathing appropriately) Neurological: Other (responding to pain and voice but aphasic) - Studies Medications List Reviewed: Yes Assessment & Plan Discharge Plan: Other (Suspect hospice at discharge) Plan to discharge in: Greater than 2 days Physician Review Additional Text: Impression: Acute toxic/metabolic encephalopathy with fever, hypoxia suspect COVID pneumonia with sepsis with the possibility of acute CVA complicated with acute renal failure/AFib with RVR AFib with RVR on chronic anti coagulation therapy Acute renal failure likely related to above with hypernatremia Elevated liver function likely related to above with possible underlying liver failure Hypomagnesia Stage IV cancer likely from appendix Anemia of chronic disease History of CVA Plan: Acute toxic/metabolic encephalopathy with fever, hypoxia suspect COVID pneumonia with sepsis with the possibility of acute CVA complicated with acute renal failure/AFib with RVR: Patient stable this time. Patient still confused and with aphasia but more responsive to pain and voice. Cardiology added amiodarone. Patient remains on diltiazem drip. I suspect cardiology to wean off diltiazem. INR still above 2.0. Hold anti coagulation therapy at this time. Will obtain MRI brain to further evaluate her condition. Suspect possible CVA with history of CVA. Neurology consulted to further evaluate. If MRI significantly abnormal will consider EEG. Will review echocardiogram. Continue IV fluids. Renal ultrasound to be obtained. Continue with nephrology recommendation. Will discuss further with nephrology. Blood, urine cultures obtained. Pulmonology decreased IV steroids. Continue monitor electrolytes and inflammatory markers. Continue IV antibiotic therapy to cover for sepsis. Pharmacy to monitor and adjust. Patient with history of stage IV cancer and desired no further treatment or evaluation. Spoke with family and daughter who is medical power of state attorney yesterday at length concerning patient's care. Patient had expressed in the past that she wanted to be do not resuscitate. Will continue to reassess her condition. Family will likely pursue hospice at the [place] [facility] at discharge. If her condition continues to decline will consider inpatient hospice. Will discuss in detail with family again today. Will continue to reassess and discuss with the multiple specialists on the case. I will turn the service over to the hospitalist team tomorrow. I will go the plan of care with him. Advanced care planning 30 min AFib with RVR on chronic anti coagulation therapy: Cardiology added amiodarone drip. Anticipate weaning off diltiazem drip. INR elevated greater than 2.0. Continue to hold anti coalition therapy. Will review echocardiogram. Will discuss further with cardiology. Acute renal failure likely related to above with hypernatremia: Continue with IV fluids. Renal ultrasound obtained. Await further recommendations from nephrology. Elevated liver function likely related to above with possible underlying liver failure: Continue to monitor liver function. Hypomagnesia: Continue to replace electrolytes. 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 Patient had expressed to her family that she did not want any further evaluation or treatment. Will discuss further with family. Anticipate hospice at discharge if the patient continues to improve or inpatient hospice if the patient continues to decline. Anemia of chronic disease: Will monitor closely. Maintain hemoglobin above 8.0. History of CVA suspect acute CVA at this time: CT scan reviewed. Will obtain MRI for further evaluation. Neurology consulted. If significantly abnormal serena l consider EEG. Time Spent Managing Pts Care (In Minutes): 55
[2020-03-29] MEDS: METHYLPREDNISOLONE 40 MG INJ IV SCH ×2 (08:29→20:25)
[2020-03-29] MEDS: PANTOPRAZOLE 40 MG INJ IVP SCH (08:29)
--- NOTE | 2020-03-29 09:31 | RAD REPORT ---
EXAM DESCRIPTION: US - Renal Ultrasound-Complete - 03/29/2020 8:05 am CLINICAL HISTORY: Acute Renal Failure Flank pain COMPARISON: No comparisons FINDINGS: Both kidneys are normal in size, shape and echotexture. The right kidney measures 9.1 x 5.0 x 3.8 cm. No hydronephrosis, focal mass or perinephric fluid. The left kidney measures 8.6 x 5.1 x 4.9 cm. No hydronephrosis, focal mass or perinephric fluid. The urinary bladder is incompletely distended without gross abnormality seen. IMPRESSION: Unremarkable renal sonogram.
[2020-03-29] MEDS: CEFEPIME/SWI 1gm 10 ML IV SCH (09:40)
[2020-03-29] MEDS: D5W 1,000 ML IV SCH ×2 (09:41→20:26)
[2020-03-29] MEDS: MORPHINE 2 MG/ML SYR IV PRN (11:51)
--- NOTE | 2020-03-29 12:47 | RAD REPORT ---
EXAM DESCRIPTION: MRI - Brain Wo Cont - 03/29/2020 12:06 pm CLINICAL HISTORY: Confusion/alteration consciousness COMPARISON: March 28, 2020 TECHNIQUE: Axial, sagittal, and coronal magnetic images of the brain were obtained. Contrast was not requested FINDINGS: 4.6 centimeter area of abnormal signal left frontal lobe. 0.8 centimeter area of abnormal signal within right occipital lobe. Both likely old infarcts with cystic encephalomalacia. Very small old cerebellar infarct. Diffusion-weighted/ADC mapping does not reveal evidence of acute infarction. The ventricles are normal caliber. An extra-axial fluid collection is not present Abnormal signal throughout the left mastoid IMPRESSION: Abnormal signal throughout the left mastoids may indicate mastoiditis No acute intracranial abnormality
--- NOTE | 2020-03-29 15:17 | RAD REPORT ---
EXAM DESCRIPTION: CT - Chest Abd Pelvis Wo Con - 03/29/2020 2:27 pm CLINICAL HISTORY: Sepsis, Stage 4 appendix cancer COMPARISON: none TECHNIQUE: Computed axial tomography of the chest, abdomen and pelvis was obtained. Oral contrast wa s given. IV contrast was not requested. All CT scans are performed using dose optimization technique as appropriate and may include automated exposure control or mA/KV adjustment according to patient size. FINDINGS: The evaluation of mediastinum, arti, vessels and solid organs is limited secondary to the lack of IV contrast administration Mild left lower lobe opacity. Calcified granuloma right lung. No mediastinal or hilar lymphadenopathy is seen. A pleural effusion is not present. A pericardial effusion is not seen. A lung consolidation is not present. The lungs are essentially clear. The liver, spleen, adrenals and kidneys appear grossly normal The pancreas is atrophic. Small ventral hernia contains fat There is no evidence of diverticulitis. Choi catheter the bladder. Trace amount of ascites IMPRESSION: Mild left lower lobe opacity may represent mild pneumonia Trace amount of ascites
[2020-03-29] MEDS ORDERED: VANCOMYCIN 2 GM in NA CHLORIDE 0.9% 500 ML IVPB SCH (21:00)
--- NOTE | 2020-03-29 21:43 | CON ---
Reason For Consultation: Consultation called because of strokes. History Of Present Illness: The patient admitted to [facility] on 03/28/2020 with respirato ry distress, shortness of breath, and positive COVID. She had difficulty expressing herself and prob lems with vision. The patient was felt to have possible stroke, especially in the setting of history of atrial fibrillation and had brain imaging, which on MRI identified old or chronic left frontal st roke measuring 4.6 cm and a chronic right occipital stroke measuring 0.8 cm. She also had left masto iditis. She does have cultures pending. Past Medical History: Includes atrial fibrillation, multiple strokes, congestive heart failure, repo rted stage IV cancer, dementia. Family History: Noncontributory. Social History: No alcohol or IV drug use. The patient resides in a intermediate. Medications: Currently amiodarone 900 mg, she is taking an IV drip, cefepime 1 g daily, diltiazem IV , lorazepam 0.25 mg 3 times daily as needed for agitation, Zofran, Protonix, and she is on vancomycin . Review of Systems: Not reliable as the patient is not able to communicate effectively, likely because of an expressive a phasia related to her left frontal stroke in Broca's area. Physical Examination: Vital Signs: Blood pressure 132/79, pulse 67, respiratory rate 13, temperature 98.5, oxygen saturati on 96% on room air. The patient is 250 pounds, 5 feet 5 inches with BMI 41.6. General: Ms. Hadley is resting in bed. She appears alert, very difficult to communicate becaus e of her expressive aphasia. Neurologic: She does not raise arms and does not have focal weakness identified in terms of face, ar m, or leg. Unable to reliably assess sensation, coordination, or gait. She will be ambulated with t physical therapist. Laboratory Studies: Complete blood count with differential shows a low hemoglobin of 10 and neutroph ils elevated at 89.7. D-dimer elevated at 912. INR 2.06. Arterial blood gas from the showed p H 7.32. Chemistries show very low magnesium of 1.3, elevated sodium of 147, creatinine 3.12. Creati ne kinase elevated at 456. She has normal TSH and free T4. Her lactic acid is elevated at max 3.3. Procalcitonin is very elevated at 31.37. Her abdomen, pelvis, and chest CT scan shows mild left low er lobe opacity consistent with mild pneumonia. Assessment: Ms. Hadley is a 69-year-old patient with an infectious encephalopathy complicating a chronic stroke involving the left frontal lobe in Broca's area and a right occipital lobe with like ly a left homonymous hemianopsia. At this point, the patient should be continued on aggressive treat ment for her infection. It is unlikely that she will recover significant ability to communicate effe ctively and will likely require long-term care, perhaps hospice should be considered. At this point, we will continue with stroke risk reduction including the use of high-dose Lovenox and if the patien t is able to swallow and pass a swallow evaluation, may consider using aspirin plus Plavix rené JOSE/ENRIKE Voice ID: [id number] Report ID: [id number]
--- NOTE | 2020-03-29 21:58 | P.PN ---
Date of Service: 03/29/20 Vital Signs Temp Pulse Resp BP Pulse Ox 97.3 F 80 20 139/73 96 03/29/20 19:00 03/29/20 21:00 03/29/20 21:00 03/29/20 21:00 03/29/20 21:00 Medications Acetaminophen (Tylenol -Extra Strength) 500 mg PO Q4HP PRN PRN Reason: TEMP > 101' F Stop: 04/27/20 08:24 Acetaminophen (Tylenol Suppository) 650 mg VA Q6HP PRN PRN Reason: TEMP > 101' F Stop: 04/27/20 08:24 Last Admin: 03/28/20 14:03 Dose: 650 mg Documented by: Dextrose/Water (Dextrose In Water (1-Liter)) 1,000 mls @ 100 mls/hr IV .Q10H PRINCE Stop: 04/27/20 08:24 Last Admin: 03/29/20 20:26 Dose: 1,000 mls Documented by: Vancomycin HCl 2 gm/ Sodium (Chloride) 500 mls @ 250 mls/hr IVPB Q36H PRINCE; Protocol Stop: 04/28/20 21:01 Last Admin: 03/29/20 20:17 Dose: Not Given Documented by: Amiodarone HCl 900 mg/ (Dextrose) 500 mls @ 0 mls/hr IV CONT PRINCE; Protocol Stop: 04/27/20 12:01 Last Admin: 03/29/20 05:07 Dose: 500 mls Documented by: Diltiazem HCl 125 mg/ Sodium (Chloride) 125 mls @ 5 mls/hr IVPB PRN PRN; Protocol PRN Reason: Hemodynamic Parameters Stop: 04/27/20 12:04 Last Admin: 03/29/20 01:41 Dose: 125 mls Documented by: Cefepime HCl (Maxipime 1 Gm/10 Ml Ivp) 10 mls @ 200 mls/hr IV DAILY PRINCE Stop: 04/28/20 09:01 Last Admin: 03/29/20 09:40 Dose: 10 mls Documented by: Lorazepam (Ativan) 0.25 mg IV TID PRN PRN Reason: AGITATION Stop: 04/27/20 08:24 Methylprednisolone Sodium Succinate (Solu-Medrol) 40 mg IV Q12HR PRINCE Stop: 04/27/20 21:01 Last Admin: 03/29/20 20:25 Dose: 40 mg Documented by: Morphine Sulfate (Morphine Sulfate) 2 mg IV Q6H PRN PRN Reason: Pain scale 5-7 (Moderate) Stop: 04/27/20 08:24 Last Admin: 03/29/20 11:51 Dose: 2 mg Documented by: Ondansetron HCl (Zofran) 4 mg IV Q6HP PRN PRN Reason: NAUSEA / VOMITING Stop: 04/27/20 08:24 Pantoprazole Sodium (Protonix Inj) 40 mg IVP DAILY [facility]; Protocol Stop: 04/27/20 09:01 Last Admin: 03/29/20 08:29 Dose: 40 mg Documented by: Sodium Chloride (Normal Saline Flush) 10 ml IV BID PRINCE Stop: 04/27/20 09:01 Last Admin: 03/29/20 20:26 Dose: 10 ml Documented by: Sodium Chloride (Sodium Chloride 10 Ml Inj) 10 ml IV UD PRN PRN Reason: Diluant Stop: 04/27/20 08:24 Microbiology Results 03/28/20 05:45 Blood - Blood Aerobic Blood Culture - Preliminary 03/28/20 05:45 Blood - Blood Blood Culture Gram Stain - Preliminary 03/28/20 05:45 Blood - Blood Anaerobic Blood Culture - Preliminary No growth in 24 hours. 03/28/20 06:00 Blood - Blood Aerobic Blood Culture - Preliminary 03/28/20 06:00 Blood - Blood Blood Culture Gram Stain - Preliminary 03/28/20 06:00 Blood - Blood Anaerobic Blood Culture - Preliminary No growth in 24 hours. 03/28/20 06:29 Catheterized Urine [place] Count - Preliminary <10,000 CFU/ML. 03/28/20 06:29 Catheterized Urine - Preliminary Assessment/ Plan: Nephrology/ ICU CPS improved without CP or SOB. No acute events overnight. Limited IH/ ROS due to AMS Vitals, medications, blood work and imaging reviewed in the chart. General: NAD. Responds to commands. HEENT: Atraumatic Neck: Supple Respiratory: Clear to auscultation bilaterally, Diminished Cardiovascular: No edema, Irregular heart rate/rhythm Gastrointestinal: Hypoactive, Non-distended Musculoskeletal: No clubbing, No contractures Integumentary: No rashes, No cyanosis Neurological: Abnormal tone Urinary: Choi catheter Laboratory Data (last 24 hrs) 03/28/20 05:05: PT 28.6 H, INR 2.47, APTT 34.9 03/28/20 05:05: WBC 8.2, Hgb 10.4 L, Hct 31.8 L, Plt Count 295 03/28/20 05:05: Sodium 151 H, Potassium 3.5, BUN 60 H, Creatinine 3.30 H, Glucose 85, Magnesium 1.5 L, Total Bilirubin 1.3 H, AST 367 H*, ALT 70, Alkaline Phosphatase 64, Lipase 37 L Imagings Data: EXAM DESCRIPTION: Matias Single View03/28/2020 5:36 am CLINICAL HISTORY: Cough COMPARISON: none FINDINGS: Artifact overlies the chest Mild bilateral pulmonary opacities suspected The heart is normal size IMPRESSION: Mild bilateral pulmonary opacities may indicate mild pneumonia Conclusions/Impression: A/ JEF in the setting of hypovolemia Proteinuria Hypernatremia/ Dehydration Hypokalemia Acidosis Hypocalcemia Hypomagnesemia Rhabdomyolysis, mild Severe malnutrition. Hypoalbuminemia. Diastolic CHF, chronic Anemia in chronic illness Stage IV cancer of the appendix. Sepsis COVID19 Toxic metabolic encephalopathy P/ Continue current POC and Medications Continue IVF. IVF bolus as needed. Albumin as needed for hypotension. Amiodarone gtt for rapid afib. Continue abx. COVID protocol. Oxygen supplementation. No NSAIDs. AM labs. Daily weight. Greater than 30min patient care. Case reviewed with the family.
[2020-03-30] MEDS: DILTIAZEM INJ 125 MG in NA CHLORIDE 0.9% 100 ML IVPB PRN (04:03)
[2020-03-30] MEDS: MORPHINE 2 MG/ML SYR IV PRN ×2 (04:08→11:33)
[2020-03-30 05:16] LABS: Absolute Lymphocytes (CBC) 0.6 K/uL (0.7-4.9); Basophils % 0.4 % (0-1.3); Hematocrit 30.5 % (36.0-45.0); Lymphocytes % 5.3 % (15.3-44.8); MPV 9.3 fL (7.6-11.3); RBC Red Blood Cell Count 3.34 M/uL (3.86-4.86)
[2020-03-30 05:20] LABS: Protime INR 1.54
[2020-03-30 05:31] LABS: Albumin 1.5 g/dL (3.4-5.0); Bilirubin Total 0.9 mg/dL (0.2-1.0); Potassium 3.6 mmol/L (3.5-5.1); Protein, Total 5.9 g/dL (6.4-8.2)
[2020-03-30] MEDS: D5W 1,000 ML IV SCH ×2 (06:19→18:36)
[2020-03-30] MEDS: METHYLPREDNISOLONE 40 MG INJ IV SCH ×2 (08:10→20:47)
[2020-03-30] MEDS: CEFEPIME/SWI 1gm 10 ML IV SCH (08:10)
[2020-03-30] MEDS: PANTOPRAZOLE 40 MG INJ IVP SCH (08:10)
[2020-03-30] MEDS ORDERED: VANCOMYCIN 1.5 GM in NA CHLORIDE 0.9% 500 ML IVPB SCH (09:00)
--- NOTE | 2020-03-30 11:21 | P.PN ---
Subjective Date of Service: 04/08/20 Primary Care Provider: Dr. Perez Chief Complaint: Altered mental status, fever Subjective: Improving (Patient is improving she is more alert today hemodynamically stable) Physical Examination - Vital Signs Temperature: 97.7 F Blood Pressure: 136/82 Pulse: 81 Respirations: 19 Pulse Ox (%): 96 - Physical Exam General: Alert Respiratory: Clear to auscultation bilaterally Cardiovascular: No edema, Regular rate/rhythm - Studies Microbiology Data (last 24 hrs): 03/28/20 06:29 Catheterized Urine [place] Count - Final <10,000 CFU/ML. 03/28/20 06:29 Catheterized Urine - Final Escherichia Coli Medications List Reviewed: Yes Assessment & Plan - Problems (Diagnosis) (1) Sepsis Status: Acute Plan: Patient admitted with sepsis no obvious source she has minimal inflammatory changes at the left base blood cultures most likely contaminant renal function is improving may be improving from steroids blood cultures most likely contaminant family members leaning towards hospice care has multiple strokes before patient has intra-abdominal cancer Qualifiers: Sepsis type: sepsis due to unspecified organism Sepsis acute organ dysfunction status: with acute organ dysfunction
--- NOTE | 2020-03-30 11:33 | P.PN ---
Subjective Date of Service: 03/30/20 Primary Care Provider: Dr. Perez Chief Complaint: Altered mental status, fever No major changes from yesterday. No change in mental status. Patient moaning. Physical Examination - Vital Signs Temperature: 97.7 F Blood Pressure: 136/82 Pulse: 81 Respirations: 19 Pulse Ox (%): 96 - Physical Exam General: Confused HEENT: Mucous membr. moist/pink, Sclerae nonicteric Neck: Supple, JVD not distended Respiratory: Clear to auscultation bilaterally, Normal air movement Cardiovascular: Normal S1 S2, Edema (Bilateral lower extremities), Irregular heart rate/rhythm Gastrointestinal: Normal bowel sounds, Soft and benign, Non-distended Musculoskeletal: No erythema Integumentary: No rashes Neurological: Other (Confused. Moves all extremities spontaneously.) - Studies Microbiology Data (last 24 hrs): 03/28/20 06:29 Catheterized Urine [place] Count - Final <10,000 CFU/ML. 03/28/20 06:29 Catheterized Urine - Final Escherichia Coli Medications List Reviewed: Yes Assessment And Plan - Current Problems (Diagnosis) (1) Atrial fibrillation with RVR Current Visit: Yes Status: Acute (2) Acute renal failure (ARF) Current Visit: Yes Status: Acute (3) Metabolic encephalopathy Current Visit: Yes Status: Acute (4) Cancer of appendix Current Visit: Yes Status: Acute (5) Peritoneal carcinomatosis Current Visit: Yes Status: Acute (6) Anemia Current Visit: Yes Status: Acute (7) History of CVA (cerebrovascular accident) Current Visit: Yes Status: Acute (8) Hypoalbuminemia Current Visit: Yes Status: Acute - Plan Acute toxic/metabolic encephalopathy /Sepsis. No change in mental status Stable. Continue IV fluids. Blood cultures: Negative Urine culture: E. Coli. Continue monitor electrolytes and inflammatory markers. Continue IV cefepime. Family considering hospice AFib with RVR on chronic anti coagulation therapy: On Cardizem drip and amiodarone drip. Seen by cardiology Continue to hold anticoagulation therapy. Echo; normal EF. Moderate pulmonary hypertension. Cardiology is following Acute renal failure likely related to above with hypernatremia: Hypernatremia resolved. JEF is improving Continue with IV fluids. Renal ultrasound unremarkable. Nephrology is following. Elevated liver function/hypoalbuminemia likely related to above with possible underlying liver failure: Continue to monitor liver function. Hypomagnesia: Continue to replace electrolytes. 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 I am told patient and family have expressed no desire for treatment. Poor prognosis. Hospice appropriate. Will discuss hospice Anemia of chronic disease: Hemoglobin is stable at 10. Will monitor closely. Maintain hemoglobin above 8.0. History of CVA suspect acute CVA at this time: MRI of the brain: No acute CVA. Neurology input appreciated. Stroke risk reduction strategies.
[2020-03-30] MEDS: AMIODARONE HCL 900 MG in Dextrose 5%-Water 482 ML IV SCH (15:40)
--- NOTE | 2020-03-30 21:22 | P.PN ---
Date of Service: 03/30/20 Vital Signs Temp Pulse Resp BP Pulse Ox 97.3 F 85 19 153/68 H 97 03/30/20 16:00 03/30/20 21:00 03/30/20 21:00 03/30/20 21:00 03/30/20 21:00 Medications Acetaminophen (Tylenol -Extra Strength) 500 mg PO Q4HP PRN PRN Reason: TEMP > 101' F Stop: 04/27/20 08:24 Acetaminophen (Tylenol Suppository) 650 mg DE Q6HP PRN PRN Reason: TEMP > 101' F Stop: 04/27/20 08:24 Last Admin: 03/28/20 14:03 Dose: 650 mg Documented by: Amiodarone HCl 900 mg/ (Dextrose) 500 mls @ 0 mls/hr IV CONT [facility]; Protocol Stop: 04/27/20 12:01 Last Admin: 03/30/20 15:40 Dose: 500 mls Documented by: Diltiazem HCl 125 mg/ Sodium (Chloride) 125 mls @ 5 mls/hr IVPB PRN PRN; Protoc ol PRN Reason: Hemodynamic Parameters Stop: 04/27/20 12:04 Last Admin: 03/30/20 04:03 Dose: 125 mls Documented by: Cefepime HCl (Maxipime 1 Gm/10 Ml Ivp) 10 mls @ 200 mls/hr IV DAILY [facility] Stop: 04/28/20 09:01 Last Admin: 03/30/20 08:10 Dose: 10 mls Documented by: Dextrose/Lactated Ringer's (Dextrose 5%-Lactated Ringers) 1,000 mls @ 100 mls/hr IV .Q10H [facility] Stop: 04/29/20 22:01 Lorazepam (Ativan) 0.25 mg IV TID PRN PRN Reason: AGITATION Stop: 04/27/20 08:24 Methylprednisolone Sodium Succinate (Solu-Medrol) 40 mg IV Q12HR [facility] Stop: 04/27/20 21:01 Last Admin: 03/30/20 20:47 Dose: 40 mg Documented by: Morphine Sulfate (Morphine Sulfate) 2 mg IV Q6H PRN PRN Reason: Pain scale 5-7 (Moderate) Stop: 04/27/20 08:24 Last Admin: 03/30/20 11:33 Dose: 2 mg Documented by: Ondansetron HCl (Zofran) 4 mg IV Q6HP PRN PRN Reason: NAUSEA / VOMITING Stop: 04/27/20 08:24 Last Admin: 03/29/20 21:56 Dose: 4 mg Documented by: Pantoprazole Sodium (Protonix Inj) 40 mg IVP DAILY [facility]; Protocol Stop: 04/27/20 09:01 Last Admin: 03/30/20 08:10 Dose: 40 mg Documented by: Sodium Chloride (Normal Saline Flush) 10 ml IV BID [facility] Stop: 04/27/20 09:01 Last Admin: 03/30/20 20:47 Dose: 10 ml Documented by: Sodium Chloride (Sodium Chloride 10 Ml Inj) 10 ml IV UD PRN PRN Reason: Diluant Stop: 04/27/20 08:24 Last Admin: 03/30/20 08:11 Dose: 10 ml Documented by: Microbiology Results 03/28/20 06:29 Catheterized Urine [place] Count - Final <10,000 CFU/ML. 03/28/20 06:29 Catheterized Urine - Final Escherichia Coli 03/28/20 06:00 Blood - Blood Aerobic Blood Culture - Preliminary 03/28/20 06:00 Blood - Blood Blood Culture Gram Stain - Preliminary 03/28/20 06:00 Blood - Blood Anaerobic Blood Culture - Preliminary No growth in 24 hours. 03/28/20 05:45 Blood - Blood Aerobic Blood Culture - Preliminary 03/28/20 05:45 Blood - Blood Blood Culture Gram Stain - Preliminary 03/28/20 05:45 Blood - Blood Anaerobic Blood Culture - Preliminary No growth in 24 hours. Assessment/ Plan: Nephrology/ ICU CPS improved without CP or SOB. No acute events overnight. Limited IH/ ROS due to AMS Vitals, medications, blood work and imaging reviewed in the chart. General: NAD. Responds to commands. HEENT: Atraumatic Neck: Supple Respiratory: Clear to auscultation bilaterally, Diminished Cardiovascular: No edema, Irregular heart rate/rhythm Gastrointestinal: Hypoactive, Non-distended Musculoskeletal: No clubbing, No contractures Integumentary: No rashes, No cyanosis Neurological: Abnormal tone Urinary: Choi catheter Greater than 30min patient care. Laboratory Data (last 24 hrs) 03/28/20 05:05: PT 28.6 H, INR 2.47, APTT 34.9 03/28/20 05:05: WBC 8.2, Hgb 10.4 L, Hct 31.8 L, Plt Count 295 03/28/20 05:05: Sodium 151 H, Potassium 3.5, BUN 60 H, Creatinine 3.30 H, Glucose 85, Magnesium 1.5 L, Total Bilirubin 1.3 H, AST 367 H*, ALT 70, Alkaline Phosphatase 64, Lipase 37 L Imagings Data: EXAM DESCRIPTION: Matias Single View03/28/2020 5:36 am CLINICAL HISTORY: Cough COMPARISON: none FINDINGS: Artifact overlies the chest Mild bilateral pulmonary opacities suspected The heart is normal size IMPRESSION: Mild bilateral pulmonary opacities may indicate mild pneumonia Conclusions/Impression: A/ JEF in the setting of hypovolemia Proteinuria Hypernatremia/ Dehydration Hypokalemia Acidosis Hypocalcemia Hypomagnesemia Rhabdomyolysis, mild Severe malnutrition. Hypoalbuminemia. Diastolic CHF, chronic Anemia in chronic illness Stage IV cancer of the appendix. Sepsis COVID19 Toxic metabolic encephalopathy P/ Continue current POC and Medications Change IVF D5LR. Albumin as needed for hypotension. Amiodarone gtt for rapid afib. Continue abx. COVID protocol. Oxygen supplementation. No NSAIDs. AM labs. Daily weight.
[2020-03-31 05:03] LABS: Absolute Lymphocytes (CBC) 0.5 K/uL (0.7-4.9); Basophils % 0.1 % (0-1.3); Hematocrit 31.4 % (36.0-45.0); Lymphocytes % 4.2 % (15.3-44.8); MPV 9.8 fL (7.6-11.3); RBC Red Blood Cell Count 3.46 M/uL (3.86-4.86)
[2020-03-31 05:07] LABS: Protime INR 1.32
[2020-03-31 05:20] LABS: Albumin 1.6 g/dL (3.4-5.0); Potassium 3.8 mmol/L (3.5-5.1); Protein, Total 6.1 g/dL (6.4-8.2)
[2020-03-31] MEDS: D5LR 1,000 ML IV SCH ×3 (06:24→16:54)
[2020-03-31] MEDS: AMIODARONE HCL 900 MG in Dextrose 5%-Water 482 ML IV SCH (07:08)
[2020-03-31] MEDS: METHYLPREDNISOLONE 40 MG INJ IV SCH ×2 (08:57→19:52)
[2020-03-31] MEDS: CEFEPIME/SWI 1gm 10 ML IV SCH (08:57)
[2020-03-31] MEDS: PANTOPRAZOLE 40 MG INJ IVP SCH (08:57)
[2020-03-31] MEDS: MORPHINE 2 MG/ML SYR IV PRN ×2 (10:03→19:51)
--- NOTE | 2020-03-31 10:54 | PN ---
Date of Progress Note: 03/29/2020 Subjective: The patient has been followed for atrial fibrillation that was rapid. She has a rate th at remains rapid on amiodarone and Cardizem and n.p.o. Unable to take p.o. medication. She is afebr ile. Creatinine is 3.126. Magnesium is 1.5. Remained on steroids, antibiotics, amiodarone, Cardize m. No chest pain reported. We will continue her present regimen for now. The patient has chronic a trial fibrillation. She is not a candidate for cardioversion. We are mostly aim to improve rate cont rol, hoping that the rate will be controlled once her other illnesses are treated. Continue medical regimen for now. KUSHAL/ENRIKE Voice ID: [id number] Report ID: [id number]
--- NOTE | 2020-03-31 11:18 | PN ---
Date of Progress Note: 03/30/2020 Subjective: Ms. Hadley is a patient who has been following from a cardiovascular standpoint for atrial fibrillation aiming for rate control. She is on Cardizem and amiodarone. She remains n.p.o. , has been febrile with kidney insufficiency, abnormal electrolytes that have been supplemented. Con tinues to be on antibiotics and steroids. Family apparently is discussing end of life plans with the nurses and admitting physician. Her heart rate today is 74. She is still in atrial fibrillation, r ate control. She is unable to take p.o. and I would continue her on IV amiodarone unless the patient becomes a do not resuscitate status and we can discharge her for now for sure. We will stop her IV Cardizem. I will be available for questions and if the need arise. Otherwise, I will sign off her c ase for now. KUSHAL/ENRIKE Voice ID: [id number] Report ID: [id number]
--- NOTE | 2020-03-31 13:26 | P.PN ---
Subjective Date of Service: 03/31/20 Primary Care Provider: Dr. Perez Chief Complaint: Altered mental status, fever Patient a little bit more interactive today. Cardizem drip has been weaned off. She remain on amiodarone drip. Nursing staff report patient was coughing when she attempted to feed her. Physical Examination - Vital Signs Temperature: 98.3 F Blood Pressure: 159/73 Pulse: 78 Respirations: 18 Pulse Ox (%): 97 - Physical Exam General: Confused HEENT: Mucous membr. moist/pink Neck: Supple Respiratory: Clear to auscultation bilaterally, Normal air movement Cardiovascular: Edema (Bilateral upper and lower extremities.), Irregular heart rate/rhythm Gastrointestinal: Hypoactive, Soft and benign, No tenderness Musculoskeletal: No erythema Neurological: Other (Confused) - Studies Medications List Reviewed: Yes Assessment And Plan - Current Problems (Diagnosis) (1) Atrial fibrillation with RVR Current Visit: Yes Status: Acute (2) Acute renal failure (ARF) Current Visit: Yes Status: Acute (3) Metabolic encephalopathy Current Visit: Yes Status: Acute (4) Cancer of appendix Current Visit: Yes Status: Acute (5) Peritoneal carcinomatosis Current Visit: Yes Status: Acute (6) Anemia Current Visit: Yes Status: Acute (7) History of CVA (cerebrovascular accident) Current Visit: Yes Status: Acute (8) Hypoalbuminemia Current Visit: Yes Status: Acute - Plan Acute toxic/metabolic encephalopathy /Sepsis. Slightly better today Stable. Continue IV fluid maintenance Blood cultures: Negative Urine culture: E. Coli. Continue monitor electrolytes and inflammatory markers. Continue IV cefepime. Family considering hospice AFib with RVR on chronic anti coagulation therapy: On amiodarone drip. Seen by cardiology Start heparin drip. Echo; normal EF. Moderate pulmonary hypertension. Cardiology is following Acute renal failure likely related to above with hypernatremia: Hypernatremia resolved. JEF is improving Continue with IV fluids. Renal ultrasound unremarkable. Nephrology is following. Elevated liver function/hypoalbuminemia likely related to above with possible underlying liver failure: Continue to monitor liver function. Hypomagnesia: Continue to replace electrolytes. 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 I am told patient and family have expressed no desire for treatment. Poor prognosis. Hospice appropriate. Will discuss hospice Anemia of chronic disease: Hemoglobin is stable at 10. Will monitor closely. Maintain hemoglobin above 8.0. History of CVA suspect acute CVA at this time: MRI of the brain: No acute CVA. Neurology input appreciated. Stroke risk reduction strategies. Physician Review: Patient Assessed, Agree with Above Assessment and Plan
[2020-03-31] MEDS: HEPARIN/D5W 25,000 UNIT/500 ML BAG IV PRN (15:13)
[2020-03-31] MEDS: AMIODARONE HCL 200 MG TAB PO SCH (17:19)
[2020-03-31] MEDS: SODIUM BICARB 50 MEQ/50ML VIAL IV SCH ×3 (17:20→22:25)
--- NOTE | 2020-03-31 22:15 | P.PN ---
Date of Service: 03/31/20 Vital Signs Temp Pulse Resp BP Pulse Ox 98.4 F 81 14 160/82 H 97 03/31/20 16:00 03/31/20 18:00 03/31/20 19:51 03/31/20 18:00 03/31/20 19:51 Medications Acetaminophen (Tylenol -Extra Strength) 500 mg PO Q4HP PRN PRN Reason: TEMP > 101' F Stop: 04/27/20 08:24 Acetaminophen (Tylenol Suppository) 650 mg MD Q6HP PRN PRN Reason: TEMP > 101' F Stop: 04/27/20 08:24 Last Admin: 03/28/20 14:03 Dose: 650 mg Documented by: Amiodarone HCl (Cordarone Tab) 200 mg PO BID [facility] Stop: 04/30/20 18:01 Last Admin: 03/31/20 17:19 Dose: 200 mg Documented by: Cefepime HCl (Maxipime 1 Gm/10 Ml Ivp) 10 mls @ 200 mls/hr IV DAILY [facility] Stop: 04/28/20 09:01 Last Admin: 03/31/20 08:57 Dose: 10 mls Documented by: Dextrose/Lactated Ringer's (Dextrose 5%-Lactated Ringers) 1,000 mls @ 100 mls/hr IV .Q10H [facility] Stop: 04/29/20 22:01 Last Admin: 03/31/20 16:54 Dose: 1,000 mls Documented by: Heparin Sodium/Dextrose (Heparin Drip 25,000 Units/5oo Ml Premix) 25,000 unit in 500 mls @ 0 mls/hr IV UD PRN; Protocol PRN Reason: Heparin Protocol Stop: 04/30/20 13:27 Last Admin: 03/31/20 15:13 Dose: 500 mls Documented by: Lorazepam (Ativan) 0.25 mg IV TID PRN PRN Reason: AGITATION Stop: 04/27/20 08:24 Methylprednisolone Sodium Succinate (Solu-Medrol) 40 mg IV Q12HR [facility] Stop: 04/27/20 21:01 Last Admin: 03/31/20 19:52 Dose: 40 mg Documented by: Morphine Sulfate (Morphine Sulfate) 2 mg IV Q6H PRN PRN Reason: Pain scale 5-7 (Moderate) Stop: 04/27/20 08:24 Last Admin: 03/31/20 19:51 Dose: 2 mg Documented by: Ondansetron HCl (Zofran) 4 mg IV Q6HP PRN PRN Reason: NAUSEA / VOMITING Stop: 04/27/20 08:24 Last Admin: 03/29/20 21:56 Dose: 4 mg Documented by: Pantoprazole Sodium (Protonix Inj) 40 mg IVP DAILY [facility]; Protocol Stop: 04/27/20 09:01 Last Admin: 03/31/20 08:57 Dose: 40 mg Documented by: Sodium Bicarbonate (Sodium Bicarbonate 8.4% (50 Meq/50 Ml) Vial) 50 meq IV Q3H [facility] Stop: 03/31/20 23:01 Last Admin: 03/31/20 19:52 Dose: 50 meq Documented by: Sodium Chloride (Normal Saline Flush) 10 ml IV BID [facility] Stop: 04/27/20 09:01 Last Admin: 03/31/20 19:52 Dose: 10 ml Documented by: Sodium Chloride (Sodium Chloride 10 Ml Inj) 10 ml IV UD PRN PRN Reason: Diluant Stop: 04/27/20 08:24 Last Admin: 03/30/20 08:11 Dose: 10 ml Documented by: Microbiology Results 03/28/20 06:00 Blood - Blood Aerobic Blood Culture - Preliminary Staph Aureus 03/28/20 06:00 Blood - Blood Blood Culture Gram Stain - Preliminary 03/28/20 06:00 Blood - Blood Anaerobic Blood Culture - Preliminary No growth in 24 hours. 03/28/20 05:45 Blood - Blood Aerobic Blood Culture - Preliminary Staph Aureus 03/28/20 05:45 Blood - Blood Blood Culture Gram Stain - Preliminary 03/28/20 05:45 Blood - Blood Anaerobic Blood Culture - Preliminary No growth in 24 hours. 03/28/20 06:29 Catheterized Urine [place] Count - Final <10,000 CFU/ML. 03/28/20 06:29 Catheterized Urine - Final Escherichia Coli Assessment/ Plan: Nephrology/ ICU CPS improved without CP or SOB. No acute events overnight. Limited IH/ ROS due to AMS Vitals, medications, blood work and imaging reviewed in the chart. General: NAD. Responds to commands. HEENT: Atraumatic Neck: Supple Respiratory: Clear to auscultation bilaterally, Diminished Cardiovascular: No edema, Irregular heart rate/rhythm Gastrointestinal: Hypoactive, Non-distended Musculoskeletal: No clubbing, No contractures Integumentary: No rashes, No cyanosis Neurological: Abnormal tone Urinary: Choi catheter Greater than 30min patient care. Laboratory Data (last 24 hrs) 03/28/20 05:05: PT 28.6 H, INR 2.47, APTT 34.9 03/28/20 05:05: WBC 8.2, Hgb 10.4 L, Hct 31.8 L, Plt Count 295 03/28/20 05:05: Sodium 151 H, Potassium 3.5, BUN 60 H, Creatinine 3.30 H, Glucose 85, Magnesium 1.5 L, Total Bilirubin 1.3 H, AST 367 H*, ALT 70, Alkaline Phosphatase 64, Lipase 37 L Imagings Data: EXAM DESCRIPTION: Matias Single View03/28/2020 5:36 am CLINICAL HISTORY: Cough COMPARISON: none FINDINGS: Artifact overlies the chest Mild bilateral pulmonary opacities suspected The heart is normal size IMPRESSION: Mild bilateral pulmonary opacities may indicate mild pneumonia Conclusions/Impression: A/ JEF in the setting of hypovolemia Proteinuria Hypernatremia/ Dehydration Hypokalemia Acidosis Hypocalcemia Hypomagnesemia Rhabdomyolysis, mild Severe malnutrition. Hypoalbuminemia. Diastolic CHF, chronic Anemia in chronic illness Stage IV cancer of the appendix. Sepsis COVID19 Toxic metabolic encephalopathy P/ Continue current POC and Medications Continue IVF. Give IV Bicarb. Albumin as needed for hypotension. Continue Amiodarone. Continue abx. COVID protocol. Oxygen supplementation. No NSAIDs. AM labs. Daily weight.
[2020-04-01] MEDS: D5LR 1,000 ML IV SCH ×2 (03:10→13:31)
[2020-04-01 05:22] LABS: MPV 9.9 fL (7.6-11.3)
[2020-04-01 05:56] VITALS: BMI 40.7
[2020-04-01 05:59] LABS: Ferritin 2613.5 ng/mL (8-388); Phosphorus 3.6 mg/dL (2.5-4.9); Potassium 3.9 mmol/L (3.5-5.1); Uric Acid 9.2 mg/dL (2.6-6.0)
[2020-04-01 06:06] LABS: Platelet Estimate ADEQ
[2020-04-01] MEDS: PANTOPRAZOLE 40 MG INJ IVP SCH (08:38)
[2020-04-01] MEDS: CEFEPIME/SWI 1gm 10 ML IV SCH (08:40)
[2020-04-01] MEDS: METHYLPREDNISOLONE 40 MG INJ IV SCH (08:40)
[2020-04-01] MEDS: AMIODARONE HCL 200 MG TAB PO SCH (08:41)
[2020-04-01] MEDS: HEPARIN/D5W 25,000 UNIT/500 ML BAG IV PRN (09:09)
[2020-04-01 10:54] VITALS: O2SAT 98
--- NOTE | 2020-04-01 12:28 | P.PN ---
Subjective Date of Service: 04/01/20 Primary Care Provider: Dr. Perez Chief Complaint: Altered mental status, fever Patient patient started on mechanical and pureed diet. Amiodarone drip transition to oral amiodarone. Afebrile Physical Examination - Vital Signs Temperature: 97.5 F Blood Pressure: 146/64 Pulse: 91 Respirations: 19 Pulse Ox (%): 97 - Physical Exam General: Confused HEENT: Mucous membr. moist/pink Neck: Supple Respiratory: Clear to auscultation bilaterally, Normal air movement Cardiovascular: Normal S1 S2, Irregular heart rate/rhythm Gastrointestinal: Normal bowel sounds, Soft and benign, No tenderness Musculoskeletal: No tenderness Neurological: Other (Confused) - Studies Medications List Reviewed: Yes Assessment And Plan - Current Problems (Diagnosis) (1) Atrial fibrillation with RVR Current Visit: Yes Status: Acute (2) Acute renal failure (ARF) Current Visit: Yes Status: Acute (3) Metabolic encephalopathy Current Visit: Yes Status: Acute (4) Cancer of appendix Current Visit: Yes Status: Acute (5) Peritoneal carcinomatosis Current Visit: Yes Status: Acute (6) Anemia Current Visit: Yes Status: Acute (7) History of CVA (cerebrovascular accident) Current Visit: Yes Status: Acute (8) Hypoalbuminemia Current Visit: Yes Status: Acute - Plan Acute toxic/metabolic encephalopathy /Sepsis. Slightly better today Stable. Continue IV fluid maintenance Blood cultures: Coagulase-negative Staph Urine culture: E. Coli. Continue monitor electrolytes and inflammatory markers. Continue IV cefepime. Family considering hospice AFib with RVR on chronic anti coagulation therapy: Transitioned to oral amiodarone Seen by cardiology Change heparin drip to oral Coumadin. Echo; normal EF. Moderate pulmonary hypertension. Cardiology is following Acute renal failure likely related to above with hypernatremia: Hypernatremia resolved. JEF is improving Continue with IV fluids. Feeding started. Renal ultrasound unremarkable. Nephrology is following. Elevated liver function/hypoalbuminemia likely related to above with possible underlying liver failure: Continue to monitor liver function. Hypomagnesia: Continue to replace electrolytes. 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 Family is declining no cancer treatment. Poor prognosis. Hospice appropriate. Hospice Consult Anemia of chronic disease: Hemoglobin is stable at 10. Will monitor closely. Maintain hemoglobin above 8.0. History of CVA suspect acute CVA at this time: MRI of the brain: No acute CVA. Neurology input appreciated. Stroke risk reduction strategies. Dysphagia Patient started on mechanical chopped and pureed diet. Physician Review: Patient Assessed, Agree with Above Assessment and Plan
--- NOTE | 2020-04-01 16:38 | P.DS ---
Admission Date: 03/28/20 Discharge Date: 04/01/20 Primary Care Provider: Dr. Perez Disposition: HOSPICE-HOME Discharge Condition: FAIR Reason for Admission: Altered mental status, fever - Problems (1) Atrial fibrillation with RVR Current Visit: Yes Status: Acute (2) Acute renal failure (ARF) Current Visit: Yes Status: Acute (3) Metabolic encephalopathy Current Visit: Yes Status: Acute (4) Cancer of appendix Current Visit: Yes Status: Acute (5) Peritoneal carcinomatosis Current Visit: Yes Status: Acute (6) Anemia Current Visit: Yes Status: Acute (7) History of CVA (cerebrovascular accident) Current Visit: Yes Status: Acute (8) Hypoalbuminemia Current Visit: Yes Status: Acute Brief History of Present Illness: 69-year-old woman with multiple medical problems including chronic atrial fibrillation on Eliquis anticoagulation was transferred from rehab to the emergency department due to patient developing altered mental status and fever. Patient was recently found to have appendiceal cancer with peritoneal carcinomatosis. Patient had declined chemotherapy. She tested positive for COVID 19 1 week prior to presentation. Patient was in rapid atrial fibrillation in the ED. Blood work showed acute renal failure. Chest x-ray suggested the presence of pneumonia. Patient was hypoxic and requiring oxygen. Head CT did not show any acute intracerebral changes. Patient was admitted for further management. Hospital Course: Acute toxic/metabolic encephalopathy /Sepsis. Encephalopathy deemed secondary to sepsis Clinically improved. Blood cultures: Coagulase-negative Staph Urine culture: E. Coli. Patient treated with IV broad-spectrum antibiotics and scaled down to IV Cefepime based on culture sensitivity. AFib with RVR on chronic anti coagulation therapy: Patient treated with amiodarone drip and Cardizem drip and subsequently transitioned to oral amiodarone Seen by cardiology who assisted with management. She was briefly on heparin drip for AFib anticoagulation. Echo; normal EF. Moderate pulmonary hypertension. Acute renal failure likely related to above with hypernatremia: Hypernatremia resolved with IV hydration JEF also improved with IV hydration Feeding started. Renal ultrasound unremarkable. She was seen by nephrology who assisted with management. 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 Family is declining no cancer treatment. Per report patient had expressed her wish not to undergo any chemotherapy. Poor prognosis. Seen and evaluated by hospice. I spoke to the daughter. Preference was home with hospice. Patient has been accepted to home with hospice. Anemia of chronic disease: Hemoglobin was stable around 10. History of CVA suspect acute CVA at this time: MRI of the brain: No acute CVA. Seen by neuro Stroke risk reduction strategies implemented. Seen by speech therapy mechanical soft and nectar thickened liquids recommended for feeding. Patient tolerated feeding. Patient discharged to home with hospice. Vital Signs/Physical Exam: Temp Pulse Resp BP Pulse Ox 97.5 F 80 8 L 153/91 H 96 04/01/20 12:28 04/01/20 15:00 04/01/20 15:00 04/01/20 15:00 04/01/20 15:00 General: Confused HEENT: Mucous membr. moist/pink Respiratory: Clear to auscultation bilaterally Cardiovascular: Edema (Bilateral upper and lower extremities), Irregular heart rate/rhythm Gastrointestinal: Non-distended, No tenderness Laboratory Data at Discharge: WBC 12.4 K/uL (4.3-10.9) H 03/31/20 04:47 Hgb 10.3 g/dL (12.0-15.0) L 03/31/20 04:47 Hct 31.4 % (36.0-45.0) L 03/31/20 04:47 Plt Count 219 K/uL (152-406) 04/01/20 04:40 PT Cancelled 03/31/20 13:26 INR Cancelled 03/31/20 13:26 APTT Cancelled 04/01/20 14:00 Sodium 137 mmol/L (136-145) 04/01/20 04:40 Potassium 3.9 mmol/L (3.5-5.1) 04/01/20 04:40 BUN 77 mg/dL (7-18) H 04/01/20 04:40 Creatinine 1.99 mg/dL (0.55-1.3) H 04/01/20 04:40 Glucose 261 mg/dL (74-106) H 04/01/20 04:40 Uric Acid 9.2 mg/dL (2.6-6.0) H 04/01/20 04:40 Phosphorus 3.6 mg/dL (2.5-4.9) 04/01/20 04:40 Magnesium 2.0 mg/dL (1.8-2.4) 04/01/20 04:40 Total Bilirubin 1.0 mg/dL (0.2-1.0) 03/31/20 04:47 AST 78 U/L (15-37) H 03/31/20 04:47 ALT 45 U/L (12-78) 03/31/20 04:47 Alkaline Phosphatase 87 U/L (45-117) 03/31/20 04:47 Troponin I 0.37 ng/mL (0.0-0.045) H 03/28/20 19:14 Lipase 37 U/L (73-393) L 03/28/20 05:05 Home Medications: Acetaminophen [Tylenol*] 650 mg CO Q4HP PRN 03/28/20 Atorvastatin Calcium [Lipitor] 40 mg PO BEDTIME 03/28/20 Codeine/APAP [Tylenol #3*] 1 tab PO Q8H PRN 03/28/20 Duloxetine HCl [Cymbalta] 60 mg PO BID 03/28/20 Melatonin 3 mg PO BEDTIME 03/28/20 Zinc Sulfate [Zinc Sulfate*] 220 mg PO DAILY 03/28/20 Amiodarone HCl [Cordarone*] 200 mg PO BID #60 tab 04/01/20 Cefpodoxime Proxetil 100 mg PO BID #10 tablet 04/01/20 Doxycycline Hyclate 100 mg PO BID #14 tablet 04/01/20 Pantoprazole Sodium [Protonix] 40 mg PO DAILY #30 tablet. 04/01/20 New Medications: Cefpodoxime Proxetil 100 mg PO BID #10 tablet Amiodarone HCl [Cordarone*] 200 mg PO BID #60 tab Doxycycline Hyclate 100 mg PO BID #14 tablet Pantoprazole Sodium [Protonix] 40 mg PO DAILY #30 tablet. Diet: Mechanical soft, nectar thickened liquid Activity: Fall precautions Time spent managing pt's care (in minutes): 40
[2020-04-01] MEDS ORDERED: WARFARIN SODIUM 5 MG TAB PO SCH (17:00)
--- NOTE | 2020-04-01 21:55 | P.PN ---
Date of Service: 04/01/20 Vital Signs Temp Pulse Resp BP Pulse Ox 97.0 F 87 12 140/82 96 04/01/20 16:00 04/01/20 17:00 04/01/20 17:00 04/01/20 16:00 04/01/20 16:00 Microbiology Results 03/28/20 06:00 Blood - Blood Aerobic Blood Culture - Preliminary Staph Aureus 03/28/20 06:00 Blood - Blood Blood Culture Gram Stain - Preliminary 03/28/20 06:00 Blood - Blood Anaerobic Blood Culture - Preliminary No growth in 24 hours. 03/28/20 05:45 Blood - Blood Aerobic Blood Culture - Preliminary Staph Aureus 03/28/20 05:45 Blood - Blood Blood Culture Gram Stain - Preliminary 03/28/20 05:45 Blood - Blood Anaerobic Blood Culture - Preliminary No growth in 24 hours. 03/28/20 06:29 Catheterized Urine [place] Count - Final <10,000 CFU/ML. 03/28/20 06:29 Catheterized Urine - Final Escherichia Coli Assessment/ Plan: Nephrology/ ICU CPS improved without CP or SOB. No acute events overnight. Choi and IV removed. Limited IH/ ROS due to AMS. More responsive today. Vitals, medications, blood work and imaging reviewed in the chart. General: NAD. Responds to commands. HEENT: Atraumatic Neck: Supple Respiratory: Clear to auscultation bilaterally, Diminished Cardiovascular: No edema, Irregular heart rate/rhythm Gastrointestinal: Hypoactive, Non-distended Musculoskeletal: No clubbing, No contractures Integumentary: No rashes, No cyanosis Neurological: Abnormal tone Urinary: Choi catheter Greater than 30min patient care. Laboratory Data (last 24 hrs) 03/28/20 05:05: PT 28.6 H, INR 2.47, APTT 34.9 03/28/20 05:05: WBC 8.2, Hgb 10.4 L, Hct 31.8 L, Plt Count 295 03/28/20 05:05: Sodium 151 H, Potassium 3.5, BUN 60 H, Creatinine 3.30 H, Glucose 85, Magnesium 1.5 L, Total Bilirubin 1.3 H, AST 367 H*, ALT 70, Alkaline Phosphatase 64, Lipase 37 L Imagings Data: EXAM DESCRIPTION: Matias Single View03/28/2020 5:36 am CLINICAL HISTORY: Cough COMPARISON: none FINDINGS: Artifact overlies the chest Mild bilateral pulmonary opacities suspected The heart is normal size IMPRESSION: Mild bilateral pulmonary opacities may indicate mild pneumonia Conclusions/Impression: A/ JEF in the setting of hypovolemia Proteinuria Hypernatremia/ Dehydration Hypokalemia Acidosis Hypocalcemia Hypomagnesemia Rhabdomyolysis, mild Severe malnutrition. Hypoalbuminemia. Diastolic CHF, chronic Anemia in chronic illness Stage IV cancer of the appendix. Sepsis COVID19 Toxic metabolic encephalopathy P/ Continue current POC and Medications Encourage nutrition. Albumin as needed for hypotension. Continue Amiodarone. Continue abx. COVID protocol. Oxygen supplementation. No NSAIDs. AM labs. Daily weight. Plan for hospice placement.
[2020-04-08 09:48] VITALS: BP 136/82; TEMP 97.7
== END 2020-04-01 19:20 | disposition hospice, home (50) | DRG 871 ==
LOC: ER 04:55 → ERHOLD 06:41 → 3RD-ICU 11:21
PROVIDERS: ADMIT Family Medicine; ATTEND Internal Medicine
DX: A41.89 Other specified sepsis (principal); U07.1 COVID-19; J12.89 Other viral pneumonia; G92 Toxic encephalopathy; E43 Unspecified severe protein-calorie malnutrition; I63.9 Cerebral infarction, unspecified; I50.32 Chronic diastolic (congestive) heart failure; N17.9 Acute kidney failure, unspecified; E87.0 Hyperosmolality and hypernatremia; C18.1 Malignant neoplasm of appendix; I48.19 Other persistent atrial fibrillation; E87.2 Acidosis; M62.82 Rhabdomyolysis; Z68.41 Body mass index [BMI] 40.0-44.9, adult; C78.6 Secondary malignant neoplasm of retroperitoneum and peritoneum; N39.0 Urinary tract infection, site not specified; Z66 Do not resuscitate; Z79.01 Long term (current) use of anticoagulants; R79.89 Other specified abnormal findings of blood chemistry; E83.42 Hypomagnesemia; D63.8 Anemia in other chronic diseases classified elsewhere; Z88.1 Allergy status to other antibiotic agents; Z88.0 Allergy status to penicillin; Z79.899 Other long term (current) drug therapy; Z79.891 Long term (current) use of opiate analgesic; R65.20 Severe sepsis without septic shock; E86.0 Dehydration; E86.1 Hypovolemia; E87.6 Hypokalemia; E88.09 Other disorders of plasma-protein metabolism, not elsewhere classified; I69.320 Aphasia following cerebral infarction; B96.20 Unspecified Escherichia coli [E. coli] as the cause of diseases classified elsewhere; I27.20 Pulmonary hypertension, unspecified; R09.02 Hypoxemia
CPT/HCPCS: 36415; 51702; 70450; 70551; 71045; 71250; 74176; 76770; 80048; 80053; 80076; 80202; 81003; 81015; 82550; 82553; 82728; 82805; 82947; 83605; 83690; 83735; 84100; 84145; 84439; 84443; 84484; 84550; 85025; 85049; 85379; 85610; 85730; 86140; 87040; 87077; 87086; 87088; 87186; 87205; 92610; 92960; 93005; 93306; 94760; 99291; C9113; J0282; J0692; J1160; J1644; J2270; J2405; J2920; J2930; J3010; J3370; J3475; J7030; J7040; J7050; J7060; J7121; U0003